=== PATIENT | male | born 1945 | race Caucasian/White ===

== ENCOUNTER 2019-02-11 10:20 | Emergency (ER) | payer MEDICARE, BC ==
[2019-02-11] MEDS ORDERED: Sodium Chloride 0.9% 10 ML Syringe FLUSH PRN (10:59)
--- NOTE | 2019-02-11 11:53 | EDM.PDOC ---
ED HPI GENERAL MEDICAL PROBLEM - General Chief Complaint: General Stated Complaint: WEAK/SOB Time Seen by Provider: 02/11/19 10:54 Source of Information: Reports: Patient, RN Notes Reviewed - History of Present Illness INITIAL COMMENTS - FREE TEXT/NARRATIVE: 73-year-old male comes in with severe dyspnea. States he's been short of breath for about 2 weeks. He has had no chest pain, only very occasional cough, no recent fever or chills. He states he does have chronic anemia. He typically goes to the [facility] for his medical treatment. He is not aware of any personal history for hypertension, diabetes. He states he has been told that he has a "leaky aortic valve" no abdominal pain vomiting or diarrhea. He is not on blood thinner medication. He states he has been taken [id number] iron supplement. He does not smoke. Upon further questioning he admits that he has had swelling of his right leg worse over the past several days. He does have an area of chronic eczema right lower leg. 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 Denies: Wheezing, Pleuritic Chest Pain Cardiovascular: Denies: Chest Pain (Occasional) Endocrine: Reports: Fatigue GI/Abdominal: Denies: Abdominal Pain, Nausea, Vomiting Musculoskeletal: Reports: Other (There has been swelling of his right lower leg for the past several days). Denies: Leg Pain, Joint Pain Skin: Reports: Rash (Area of chronic rash and eczema right lower leg) Neurological: Denies: Numbness, Tingling ED EXAM, GENERAL - Physical Exam Exam: See Below General Appearance: Alert, Moderate Distress (Moderate tachypnea) Eye Exam: Bilateral Eye: PERRL Throat/Mouth: Normal Inspection, Normal Oropharynx Head: Atraumatic. No: Facial Swelling Neck: Supple, Full Range of Motion Respiratory/Chest: Respiratory Distress. No: Rales, Rhonchi, Wheezing ( Moderate tachypnea) Cardiovascular: Regular Rate, Rhythm GI/Abdominal: Soft, Non-Tender Extremities: Pedal Edema (Moderate swelling right lower leg with area of eczema , erythema right lower anterior leg), Increased Warmth (Slightly increased warmth right anterior leg). No: Leg Pain (Legs are nontender), Pallor Neurological: Alert, Oriented, No Motor/Sensory Deficits Skin Exam: Warm, Dry EKG INTERPRETATION EKG Date: 02/11/19 Rhythm: NSR P-Wave: Present QRS: LBBB Course - Vital Signs Last Recorded V/S: Last Vital Signs Temp 97.6 F 02/11/19 10:24 Pulse 70 02/11/19 10:24 Resp 18 02/11/19 10:24 BP 154/65 H 02/11/19 10:24 Pulse Ox 100 02/11/19 10:24 - Orders/Labs/Meds Orders: Active Orders 24 hr Category Date Time Status EKG 12 Lead [EKG Documentation Completion] [RC] STAT Care 02/11/19 10:59 Active Peripheral IV Care [RC] . DIRECTED Care 02/11/19 11:00 Active Sodium Chloride 0.9% [Saline Flush] Med 02/11/19 10:59 Active 10 ml FLUSH ASDIRECTED PRN Peripheral IV Insertion Adult [OM.PC] Stat Oth 02/11/19 11:00 Ordered Medication Orders Sodium Chloride (Saline Flush) 10 ml FLUSH ASDIRECTED PRN PRN Reason: Keep Vein Open Last Admin: 02/11/19 11:09 Dose: 10 ml Labs: Laboratory Tests 02/11/19 02/11/19 02/11/19 Range/Units 10:40 10:40 10:40 WBC 11.15 H (4.23-9.07) K/mm3 RBC 2.70 L (4.63-6.08) M/mm3 Hgb 8.8 L (13.7-17.5) gm/L Hct 27.4 L (40.1-51.0) % MCV 101.5 H (79.0-92.2) fl MCH 32.6 H (25.7-32.2) pg MCHC 32.1 L (32.2-35.5) g/dl RDW Std Deviation 56.6 H (35.1-43.9) fL Plt Count 133 L (163-337) K/mm3 MPV 11.2 (9.4-12.3) fl Neut % (Auto) 38.8 (34.0-67.9) % Lymph % (Auto) 19.2 L (21.8-53.1) % [place] % (Auto) 41.6 H (5.3-12.2) % Eos % (Auto) 0 L (0.8-7.0) Baso % (Auto) 0.1 (0.1-1.2) % Neut # (Auto) 4.33 (1.78-5.38) K/mm3 Lymph # (Auto) 2.14 (1.32-3.57) K/mm3 [place] # (Auto) 4.64 H (0.30-0.82) K/mm3 Eos # (Auto) 0.00 L (0.04-0.54) K/mm3 Baso # (Auto) 0.01 (0.01-0.08) K/mm3 Manual Slide Review Abnormal smear D-Dimer, Quantitative 0.91 H (0.19-0.50) mg/L Sodium 133 L (136-145) mEq/L Potassium 3.8 (3.5-5.1) mEq/L Chloride 99 (98-107) mEq/L Carbon Dioxide 21 (21-32) mEq/L Anion Gap 16.8 H (5-15) BUN 24 H (7-18) mg/dL Creatinine 2.1 H (0.7-1.3) mg/dL Est Cr Clr Drug Dosing 32.83 mL/min Estimated GFR (MDRD) 31 (>60) mL/min BUN/Creatinine Ratio 11.4 L (14-18) Glucose 130 H (83-115) mg/dL Calcium 8.9 (8.5-10.1) mg/dL Total Bilirubin 0.8 (0.2-1.0) mg/dL AST 28 (15-37) U/L ALT 32 (16-63) U/L Alkaline Phosphatase 103 (46-116) U/L Troponin I 0.208 H* (0.00-0.056) ng/mL Total Protein 7.4 (6.4-8.2) g/dl Albumin 3.9 (3.4-5.0) g/dl Globulin 3.5 gm/dL Albumin/Globulin Ratio 1.1 (1-2) 02/11/19 Range/Units 13:05 WBC (4.23-9.07) K/mm3 RBC (4.63-6.08) M/mm3 Hgb (13.7-17.5) gm/L Hct (40.1-51.0) % MCV (79.0-92.2) fl MCH (25.7-32.2) pg MCHC (32.2-35.5) g/dl RDW Std Deviation (35.1-43.9) fL Plt Count (163-337) K/mm3 MPV (9.4-12.3) fl Neut % (Auto) (34.0-67.9) % Lymph % (Auto) (21.8-53.1) % [place] % (Auto) (5.3-12.2) % Eos % (Auto) (0.8-7.0) Baso % (Auto) (0.1-1.2) % Neut # (Auto) (1.78-5.38) K/mm3 Lymph # (Auto) (1.32-3.57) K/mm3 [place] # (Auto) (0.30-0.82) K/mm3 Eos # (Auto) (0.04-0.54) K/mm3 Baso # (Auto) (0.01-0.08) K/mm3 Manual Slide Review D-Dimer, Quantitative (0.19-0.50) mg/L Sodium (136-145) mEq/L Potassium (3.5-5.1) mEq/L Chloride (98-107) mEq/L Carbon Dioxide (21-32) mEq/L Anion Gap (5-15) BUN (7-18) mg/dL Creatinine (0.7-1.3) mg/dL Est Cr Clr Drug Dosing mL/min Estimated GFR (MDRD) (>60) mL/min BUN/Creatinine Ratio (14-18) Glucose (83-115) mg/dL Calcium (8.5-10.1) mg/dL Total Bilirubin (0.2-1.0) mg/dL AST (15-37) U/L ALT (16-63) U/L Alkaline Phosphatase (46-116) U/L Troponin I 0.206 H* (0.00-0.056) ng/mL Total Protein (6.4-8.2) g/dl Albumin (3.4-5.0) g/dl Globulin gm/dL Albumin/Globulin Ratio (1-2) Meds: Medications Generic Name Dose Route Start Last Admin Trade Name Freq PRN Reason Stop Dose Admin Sodium Chloride 10 ml 02/11/19 10:59 02/11/19 11:09 Saline Flush FLUSH 10 ml ASDIRECTED PRN Administration Keep Vein Open Discontinued Medications Generic Name Dose Route Start Last Admin Trade Name Freq PRN Reason Stop Dose Admin Aspirin 324 mg 02/11/19 14:05 02/11/19 14:12 Aspirin PO 02/11/19 14:06 324 mg ONETIME ONE Administration - Re-Assessments/Exams Free Text/Narrative Re-Assessment/Exam: 02/11/19 13:00. Initial troponin was elevated at 0.208. Chest x-ray is clear white blood count 11,150, hemoglobin 8.8. 14:00 We did do ultrasound of his right lower leg check for DVT and that did come back negative. We did do a repeat troponin and that came back at 0.206. I did discuss admission at our hospital with Dr. Wilson, Hospitalist carbon sequestration plant operator. He has requested I do transfer him to a [facility] due to multiple complex underlying problems. Especially with consideration for cardiology and nephrology that we do not have here in [place]. Patient is requesting transfer to [facility]. Dr. Uribe, Hospitalist accepting physician. We will transfer by ground ambulance. Departure - Departure Time of Disposition: 15:09 Disposition: DC/Tfer to Acute Hospital 02 Condition: Serious Clinical Impression: Elevated troponin, Renal insufficiency Dyspnea Qualifiers: Dyspnea type: unspecified Qualified Code(s): R06.00 - Dyspnea, unspecified Anemia Qualifiers: Anemia type: unspecified type Qualified Code(s): D64.9 - Anemia, unspecified - Discharge Information Referrals: PCP,None [Primary Care Provider] - Forms: ED Department Discharge - My Orders Last 24 Hours: My Active Orders 02/11/19 10:59 EKG 12 Lead [EKG Documentation Completion] [RC] STAT Sodium Chloride 0.9% [Saline Flush] 10 ml FLUSH ASDIRECTED PRN 02/11/19 11:00 Peripheral IV Care [RC] . DIRECTED Peripheral IV Insertion Adult [OM.PC] Stat - Assessment/Plan Last 24 Hours: My Active Orders 02/11/19 10:59 EKG 12 Lead [EKG Documentation Completion] [RC] STAT Sodium Chloride 0.9% [Saline Flush] 10 ml FLUSH ASDIRECTED PRN 02/11/19 11:00 Peripheral IV Care [RC] . DIRECTED Peripheral IV Insertion Adult [OM.PC] Stat
--- NOTE | 2019-02-11 13:43 | CR ---
Chest: Portable view of the chest was obtained. Comparison: No previous chest x-ray. Heart size is within normal limits for portable technique. Tortuous thoracic aorta is seen. Lungs are clear with no acute parenchymal change. Bony structures are grossly intact. Impression: 1. Nothing acute is appreciated on portable chest x-ray. Diagnostic code #1
[2019-02-11] MEDS ORDERED: Aspirin 81 MG Tab.Chew PO ONE (14:05)
--- NOTE | 2019-02-11 14:48 | US ---
Right lower extremity deep venous ultrasound: Duplex and color flow imaging was obtained of the right common femoral, proximal greater saphenous, superficial femoral, popliteal, posterior tibial and peroneal veins. Left common femoral vein was also evaluated. Findings: Normal phasic flow, augmentation and compression is seen. Lymph node is noted within the right groin having a normal ultrasound appearance. Impression: 1. No evidence of deep venous thrombosis within the right lower extremity or left common femoral vein. Diagnostic code #1
[2019-02-11] MEDS ORDERED: Sodium Chloride 0.9% 1,000 ML IV SCH (15:15)
== END 2019-02-11 16:13 ==
LOC: JD.ED 10:20
DX: R06.00 Dyspnea, unspecified (principal); N28.9 Disorder of kidney and ureter, unspecified; D50.9 Iron deficiency anemia, unspecified; E78.00 Pure hypercholesterolemia, unspecified; I10 Essential (primary) hypertension; R79.89 Other specified abnormal findings of blood chemistry; Z79.899 Other long term (current) drug therapy
CPT/HCPCS: 36415; 71045; 80053; 84484; 85025; 85379; 93005; 93971; 96360; 99285; A9270; J7040

== ENCOUNTER 2019-05-10 11:23 | Emergency (ER) | payer MEDICARE, BC ==
[2019-05-10] MEDS ORDERED: Sodium Chloride 0.9% 10 ML Syringe FLUSH PRN (13:11)
--- NOTE | 2019-05-10 14:08 | CR ---
Chest: Portable view of the chest was obtained. Comparison: Prior chest x-ray of 02/11/19. Heart size is normal. Tortuous thoracic aorta is seen. Lungs are clear with no acute parenchymal change. Bony structures are grossly intact. Impression: 1. Nothing acute is seen. Diagnostic code #2
--- NOTE | 2019-05-10 15:55 | EDM.PDOC ---
ED HPI GENERAL MEDICAL PROBLEM - General Chief Complaint: Gastrointestinal Problem Stated Complaint: BLEEDING HERMIROIDS CAUSING WEAKNESS Time Seen by Provider: 05/10/19 13:00 Source of Information: Reports: Patient History Limitations: Reports: No Limitations - History of Present Illness INITIAL COMMENTS - FREE TEXT/NARRATIVE: 73-year-old male presents for evaluation and treatment of weakness. Patient has a history of internal hemorrhoids that bleed. He has been appreciating some blood to him a bright red in color this weekend. States that he's not had a bowel movement since Friday. Last bowel movement on Friday he estimates he lost a half a cup of bright red blood. No clots. No rectal pain. He denies any melena. He reports associated symptoms of weakness and "a little bit "of shortness of breath. No chest pain no lightheadedness or abdominal pain. He is not on any aspirin or any blood thinners. Patient was seen in March of this year for similar symptoms. He is found to have an elevated troponin and sent to [place]. He states he did not have a heart attack. He did receive 2 units of blood along [place]. He states that he had a colonoscopy and was told that he had internal hemorrhoids and polyps. He also had an EGD and had a bleeding ulcer but states that this has been managed. He also reports that he had a bone marrow biopsy and was seen by Dr. Marsh, oncologist, his bone marrow biopsy was campo. At this point is unclear exactly why he has anemia. He states that he has been anemic for 7 years. primary care provider is Howard Sin. - Related Data Allergies Allergy/AdvReac Type Severity Reaction Status Date / Time No Known Allergies Allergy Verified 02/11/19 11:08 Home Meds: Home Meds Allopurinol [Zyloprim] 200 mg PO BEDTIME 02/11/19 [History] Ferrous Sulfate 255 mg PO DAILY 02/11/19 [History] Omeprazole 40 mg PO DAILY 02/11/19 [History] atorvaSTATin [Lipitor] 20 mg PO DAILY 02/11/19 [History] Calcium Carb/Magnesium Oxid/D3 [Calcium Magnesium + D] 1 tab PO DAILY 05/10/19 [ History] Cholecalciferol (Vitamin D3) [Vitamin D3] 2,000 unit PO DAILY 05/10/19 [History] Cyanocobalamin (Vitamin B-12) [Vitamin B12] 5,000 mcg PO DAILY 05/10/19 [History ] L. Acidophilus/L. 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 Hematologic History: Reports: Anemia, Iron Deficiency - Past Surgical History Cardiovascular Surgical History: Reports: None Social & Family History - Family History Family Medical History: Noncontributory - Tobacco Use Smoking Status *Q: Never Smoker - Caffeine Use Caffeine Use: Reports: Soda - Recreational Drug Use Recreational Drug Use: No ED ROS GENERAL - Review of Systems Review Of Systems: See Below Constitutional: Reports: Weakness Respiratory: Reports: Shortness of Breath ("little bit") Cardiovascular: Denies: Chest Pain GI/Abdominal: Reports: Hematochezia, Other (denies any rectal pain). Denies: Abdominal Pain, Melena Hematologic/Lymphatic: Reports: Anemia ED EXAM, GI/ABD - Physical Exam Exam: See Below Exam Limited By: No Limitations General Appearance: Alert, WD/WN, No Apparent Distress Throat/Mouth: Normal Inspection, Normal Voice, No Airway Compromise Respiratory/Chest: No Respiratory Distress, Lungs Clear, Normal Breath Sounds Cardiovascular: Normal Peripheral Pulses, Regular Rate, Rhythm, No Murmur GI/Abdominal Exam: Normal Bowel Sounds, Soft, Non-Tender, Other (unable to get stool on rectal exam, hemocult - ) Rectal (Males) Exam: Heme - Stool (diffictuly obtaining stool) Neurological: Alert, Oriented, Normal Cognition Psychiatric: Normal Affect, Normal Mood Skin Exam: Warm, Dry, Normal Color EKG INTERPRETATION EKG Date: 05/10/19 Time: 13:30 Rhythm: NSR Rate (Beats/Min): 72 QRS: LBBB EKG Interpretation Comments: NSR at 72 bpm. LBBB. No significant change from previous EKG. Reviewed by myself and Dr. Franco. Course - Vital Signs Last Recorded V/S: Last Vital Signs Temp 98.3 F 05/10/19 11:34 Pulse 78 05/10/19 11:34 Resp 20 05/10/19 11:34 BP 126/86 05/10/19 11:34 Pulse Ox 98 05/10/19 11:34 Orthostatic Blood Pressure [ 122/71 Standing] Orthostatic Blood Pressure [ 122/76 Sitting] Orthostatic Blood Pressure [ 128/77 Supine] - Orders/Labs/Meds Labs: Laboratory Tests 05/10/19 05/10/19 05/10/19 Range/Units 12:24 12:24 12:24 WBC 7.99 (4.23-9.07) K/mm3 RBC 2.59 L (4.63-6.08) M/mm3 Hgb 8.1 L D (13.7-17.5) gm/L Hct 25.1 L (40.1-51.0) % MCV 96.9 H (79.0-92.2) fl MCH 31.3 (25.7-32.2) pg MCHC 32.3 (32.2-35.5) g/dl RDW Std Deviation 51.7 H (35.1-43.9) fL Plt Count 143 L (163-337) K/mm3 MPV 11.2 (9.4-12.3) fl Neut % (Auto) 64.4 (34.0-67.9) % Lymph % (Auto) 13.1 L (21.8-53.1) % [place] % (Auto) 21.4 H (5.3-12.2) % Eos % (Auto) 0.5 L (0.8-7.0) Baso % (Auto) 0.1 (0.1-1.2) % Neut # (Auto) 5.14 (1.78-5.38) K/mm3 Lymph # (Auto) 1.05 L (1.32-3.57) K/mm3 [place] # (Auto) 1.71 H (0.30-0.82) K/mm3 Eos # (Auto) 0.04 (0.04-0.54) K/mm3 Baso # (Auto) 0.01 (0.01-0.08) K/mm3 Manual Slide Review Abnormal smear PT 10.9 (9.5-12.1) SECONDS INR 1.00 APTT 28 (24-31) SECONDS Sodium 138 (136-145) mEq/L Potassium 4.3 (3.5-5.1) mEq/L Chloride 103 (98-107) mEq/L Carbon Dioxide 23 (21-32) mEq/L Anion Gap 16.3 H (5-15) BUN 20 H (7-18) mg/dL Creatinine 1.4 H (0.7-1.3) mg/dL Est Cr Clr Drug Dosing 49.25 mL/min Estimated GFR (MDRD) 50 (>60) mL/min BUN/Creatinine Ratio 14.3 (14-18) Glucose 100 (83-115) mg/dL Calcium 9.1 (8.5-10.1) mg/dL Total Bilirubin 0.3 (0.2-1.0) mg/dL AST 31 (15-37) U/L ALT 29 (16-63) U/L Alkaline Phosphatase 116 (46-116) U/L Troponin I (0.00-0.056) ng/mL Total Protein 6.8 (6.4-8.2) g/dl Albumin 3.5 (3.4-5.0) g/dl Globulin 3.3 gm/dL Albumin/Globulin Ratio 1.1 (1-2) Blood Type Gel Antibody Screen Antibody Identification Antigen Typing 05/10/19 05/10/19 Range/Units 12:24 12:24 WBC (4.23-9.07) K/mm3 RBC (4.63-6.08) M/mm3 Hgb (13.7-17.5) gm/L Hct (40.1-51.0) % MCV (79.0-92.2) fl MCH (25.7-32.2) pg MCHC (32.2-35.5) g/dl RDW Std Deviation (35.1-43.9) fL Plt Count (163-337) K/mm3 MPV (9.4-12.3) fl Neut % (Auto) (34.0-67.9) % Lymph % (Auto) (21.8-53.1) % [place] % (Auto) (5.3-12.2) % Eos % (Auto) (0.8-7.0) Baso % (Auto) (0.1-1.2) % Neut # (Auto) (1.78-5.38) K/mm3 Lymph # (Auto) (1.32-3.57) K/mm3 [place] # (Auto) (0.30-0.82) K/mm3 Eos # (Auto) (0.04-0.54) K/mm3 Baso # (Auto) (0.01-0.08) K/mm3 Manual Slide Review PT (9.5-12.1) SECONDS INR APTT (24-31) SECONDS Sodium (136-145) mEq/L Potassium (3.5-5.1) mEq/L Chloride (98-107) mEq/L Carbon Dioxide (21-32) mEq/L Anion Gap (5-15) BUN (7-18) mg/dL Creatinine (0.7-1.3) mg/dL Est Cr Clr Drug Dosing mL/min Estimated GFR (MDRD) (>60) mL/min BUN/Creatinine Ratio (14-18) Glucose (83-115) mg/dL Calcium (8.5-10.1) mg/dL Total Bilirubin (0.2-1.0) mg/dL AST (15-37) U/L ALT (16-63) U/L Alkaline Phosphatase (46-116) U/L Troponin I 0.137 H* (0.00-0.056) ng/mL Total Protein (6.4-8.2) g/dl Albumin (3.4-5.0) g/dl Globulin gm/dL Albumin/Globulin Ratio (1-2) Blood Type O POSITIVE Gel Antibody Screen Positive Antibody Identification Anti-E Antigen Typing E Antigen - NEGATIVE Meds: Medications Discontinued Medications Generic Name Dose Route Start Last Admin Trade Name Freq PRN Reason Stop Dose Admin Sodium Chloride 10 ml 05/10/19 13:11 05/10/19 13:43 Saline Flush FLUSH 10 ml ASDIRECTED PRN Administration Keep Vein Open - Re-Assessments/Exams Free Text/Narrative Re-Assessment/Exam: 05/10/19 15:57 I reviewed the labs with the patient. Trop leak appears to be chronic. Unclear the etiology of his anemia at this point. sounds as is he has had a complete workup in [place]. Per his report only possible etiology found thus far is bleeding internal hemorrhoids. Has had colconscopy, egd and bone marrow biopsy recently. So called with Dr. Marsh oncologist I did discuss case with Dr. gil, surgeon quality liaison. Given that this is a chronic problem and he does not have known cardiac issues did not feel that we need to transfuse him. She'll see him in clinic for follow-up. Discharge instructions as documented. Departure - Departure Time of Disposition: 15:57 Disposition: Home, Self-Care 01 Condition: Fair Clinical Impression: Elevated troponin Anemia Qualifiers: Anemia type: unspecified type Qualified Code(s): D64.9 - Anemia, unspecified - Discharge Information *PRESCRIPTION DRUG MONITORING PROGRAM REVIEWED*: No *COPY OF PRESCRIPTION DRUG MONITORING REPORT IN PATIENT [place]: No Instructions: Anemia Referrals: Howard Sin PA-C [Primary Care Provider] - Lin-Jennifer Srivastava MD [Physician] - Forms: ED Department Discharge Additional Instructions: Continue with your current medications and plan of care. Recommend avoiding any NSAIDs such as ibuprofen, Aleve etc. Recommend follow-up with Dr. Gil this week. Call [phone] to schedule an appointment with her. She is a general surgeon over at [facility]. Please return to the ER if your symptoms change or worsen.
== END 2019-05-10 16:07 | disposition home or self-care (01) ==
LOC: JD.ED 11:23
DX: D64.9 Anemia, unspecified (principal); R79.89 Other specified abnormal findings of blood chemistry; I10 Essential (primary) hypertension; E78.00 Pure hypercholesterolemia, unspecified; Z79.899 Other long term (current) drug therapy
CPT/HCPCS: 36415; 71045; 71045-26; 80053; 84484; 85025; 85610; 85730; 86850; 86870; 86900; 86901; 93005; 99285-25

== ENCOUNTER 2019-12-04 14:59 | Emergency (ER) | payer MEDICARE, BC ==
--- NOTE | 2019-12-04 15:44 | EDM.PDOC ---
ED HPI GENERAL MEDICAL PROBLEM - General Chief Complaint: Neurological Problem Stated Complaint: WEAK AND HARD TIME THINKING Time Seen by Provider: 12/04/19 15:38 Source of Information: Reports: Patient History Limitations: Reports: No Limitations - History of Present Illness INITIAL COMMENTS - FREE TEXT/NARRATIVE: 74-year-old male presents to the ED for evaluation of mild confusion and mild expressive aphasia that developed today. Patient states he has chronic rectal bleeding presumably from internal hemorrhoids and has been bleeding per rectum or without a bowel movement for the last year. He has had a colonoscopy in complete workup with no positive findings in [place]. The history strongly suggests these are hemorrhoid problems is the oblique bleeding is always bright red with wiping after cause pain stool. He states in the past he has become so anemic that he required multiple blood transfusions. He was concerned today this may provide be the reason that he is confused and slightly disoriented. He states he never felt bad enough today to not drive the vehicle. She feels slightly offkilter at times where he takes an extra step and is never fallen and he certainly not hit his head recently. Denies any fever chills or injuries. No recent nausea vomiting or diarrhea. He reports that he has been eating and drinking well and believes his nutritional intake is normal. Onset: Today, Gradual Onset Date: 12/04/19 Duration: Hour(s):, Intermittent Location: Reports: Generalized (Feels a little bit offkilter. Feels generally weak. Feels that he is having difficulty finding the right words to say at times i.e. expressive aphasia.) Quality: Reports: Other Severity: Moderate (Weakness generalized.) Improves with: Reports: None Worsens with: Reports: None Context: Denies: Activity, Exercise, Lifting, Sick Contact, Trauma Associated Symptoms: Reports: Confusion, Malaise, Weakness (Generalized sense of weakness.). 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 Most of his medications are actually [id number] medications.) - Related Data Allergies Allergy/AdvReac Type Severity Reaction Status Date / Time No Known Allergies Allergy Verified 12/04/19 15:19 Home Meds: Home Meds Ferrous Sulfate 255 mg PO DAILY 02/11/19 [History] Omeprazole 40 mg PO DAILY 02/11/19 [History] allopurinoL [Zyloprim] 200 mg PO BEDTIME 02/11/19 [History] atorvaSTATin [Lipitor] 20 mg PO DAILY 02/11/19 [History] Calcium Carb/Magnesium Oxid/D3 [Calcium Magnesium + D] 1 tab PO DAILY 05/10/19 [ History] Cholecalciferol (Vitamin D3) [Vitamin D3] 2,000 unit PO DAILY 05/10/19 [History] Cyanocobalamin (Vitamin B-12) [Vitamin B12] 5,000 mcg PO DAILY 05/10/19 [History ] L. Acidophilus/L. Rhamnosus [Probiotic 15 Billion Cell Cap] 1 tab PO DAILY 05/10 [History] Multivitamin [Multivitamins] 1 each PO DAILY 05/10/19 [History] Naproxen Sodium [Aleve] 220 mg PO DAILY PRN 05/10/19 [History] [place]-3/DHA/Epa/Fish Oil [[place] 3 500 Softgel] 1 tab PO DAILY 05/10/19 [History] Vitamin E 400 unit PO DAILY 05/10/19 [History] Past Medical History Cardiovascular History: Reports: High Cholesterol, Hypertension, Other (See Below) 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 is had a colonoscopy by fire captain in [place] over a year ago with no positive findings in the colon. It sounds like however there was a enlarged internal hemorrhoid at the time but this fire captain states that he doesn't repair these or band them. The patient thus has had continued bleeding per rectum with every bowel movement for the last year his hemoglobin at that time was down to 7 and he required multiple transfusions Hematologic History: Reports: Anemia, Iron Deficiency - Past Surgical History Cardiovascular Surgical History: Reports: None Social & Family History - Family History Family Medical History: Noncontributory - Tobacco Use Smoking Status *Q: Never Smoker - Caffeine Use Caffeine Use: Reports: Soda - Living Situation & Occupation Living situation: Reports: Single (Self-employed) Occupation: Employed ED ROS GENERAL - Review of Systems Review Of Systems: See Below Constitutional: Reports: Malaise, Weakness, Fatigue. Denies: Fever, Chills, Night Sweats, Diaphoresis, Decreased Appetite, Weight Loss HEENT: Reports: No Symptoms Respiratory: Reports: No Symptoms Cardiovascular: Reports: Blood Pressure Problem, Lightheadedness. Denies: Chest Pain, Claudication, Dyspnea on Exertion, Edema, Orthopnea, Palpitations Endocrine: Reports: Fatigue GI/Abdominal: Reports: Constipation, Hematochezia (running constipation medication almost with every bowel movement for the last year. Has been bad enough that he became anemic enough to require colonoscopy with no positive findings. 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 Denies: Headache, Numbness, Paresthesia, Pre-Existing Deficit, Seizure, Syncope, Tingling, Tremors (She feels he is listing a little bit to the left at times. No falls and doesn't have to hang onto any furniture to walk.), Trouble Speaking Psychiatric: Reports: Confusion. Denies: Anxiety, Cravings, Depression, Hallucinations, Homicidal Ideation, Mood Lability, Suicidal Ideation Hematologic/Lymphatic: Reports: Anemia Immunologic: Reports: No Symptoms ED EXAM, NEURO - Physical Exam Exam: See Below Exam Limited By: No Limitations General Appearance: Alert, WD/WN, Anxious, Mild Distress, Other (Vital signs show temperature 37.1. Pulse is 72 and sinus heart rate is 18 BP slightly elevated 158/92 with O2 sats of 98%.) Eye Exam: Bilateral Eye: Normal Inspection, PERRL, Other (No nystagmus) Throat/Mouth: Other Head Exam: Atraumatic, Normocephalic (Tongue is mildly dry and coated.) Neck: Normal Inspection, Supple, Non-Tender, Full Range of Motion. No: Lymphadenopathy (L), Lymphadenopathy (R) Respiratory/Chest: No Respiratory Distress, Lungs Clear, Normal Breath Sounds, No Accessory Muscle Use, Chest Non-Tender Cardiovascular: Normal Peripheral Pulses, Regular Rate, Rhythm, No Edema, No Gallop, No Murmur, No Rub GI/Abdominal: Normal Bowel Sounds, Soft, Non-Tender, No Organomegaly, No Abnormal Bruit, No Mass, Pelvis Stable, Other (Male) Exam: No Hernia (No surgical scars.) Neurological: Alert, Normal Mood/Affect, Normal Dorsiflexion, CN II-XII Intact, Normal Plantar Flexion, Normal Gait (No ataxia.), Normal Reflexes, No Motor/ Sensory Deficits, Oriented x 3. No: Abnormal Motor, Abnormal Pin Prick, Babinski, Difficulty Walking Back Exam: Normal Inspection, Full Range of Motion. No: CVA Tenderness (L), CVA Tenderness (R) Extremities: Normal Inspection, Normal Range of Motion, Non-Tender Psychiatric: Normal Affect, Normal Mood Skin Exam: Warm, Dry, Intact, Normal Color, No Rash EKG INTERPRETATION EKG Date: 12/04/19 Time: 16:02 Rhythm: NSR Rate (Beats/Min): 72 [place]: LAD-Left [place] Deviation P-Wave: Enlarged (Consider left atrial hypertrophy) QRS: LBBB ST-T: Other (There is T-wave inversion in leads 1 aVL and lead V6.) QT: Prolonged EKG Interpretation Comments: Abnormal ECG Course - Vital Signs Last Recorded V/S: Last Vital Signs Temp 37.1 C 12/04/19 15:20 Pulse 72 12/04/19 15:20 Resp 18 12/04/19 15:20 BP 158/92 H 12/04/19 15:20 Pulse Ox 98 12/04/19 15:20 - Orders/Labs/Meds Orders: Active Orders 24 hr Category Date Time Status Bladder Scan [RC] ASDIRECTED Care 12/04/19 15:41 Active EKG Documentation Completion [RC] STAT Care 12/04/19 15:40 Active Chest 1V Frontal [CR] Stat Exams 12/04/19 15:39 Taken FOLIC ACID [CHEM] Stat Lab 12/04/19 16:00 Received VITAMIN B12 [CHEM] Stat Lab 12/04/19 16:00 Received Dextrose 5%-0.9% NaCl [Dextrose 5%-Normal Saline] 1,000 Med 12/04/19 15:45 Active ml IV ASDIRECTED Medication Orders Dextrose/Sodium Chloride (Dextrose 5%-Normal Saline) 1,000 mls @ 500 mls/hr IV ASDIRECTED MALI Last Infusion: 12/04/19 17:33 Dose: 999 mls/hr Admin: 12/04/19 16:03 Dose: 500 mls/hr Labs: Laboratory Tests 12/04/19 12/04/19 12/04/19 Range/Units 16:00 16:00 16:00 WBC 4.47 (4.23-9.07) K/mm3 RBC 3.28 L (4.63-6.08) M/mm3 Hgb 10.3 L D (13.7-17.5) gm/dl Hct 31.6 L (40.1-51.0) % MCV 96.3 H (79.0-92.2) fl MCH 31.4 (25.7-32.2) pg MCHC 32.6 (32.2-35.5) g/dl RDW Std Deviation 47.2 H (35.1-43.9) fL Plt Count 148 L (163-337) K/mm3 MPV 11.6 (9.4-12.3) fl Neut % (Auto) 60.4 (34.0-67.9) % Lymph % (Auto) 17.2 L (21.8-53.1) % [place] % (Auto) 20.8 H (5.3-12.2) % Eos % (Auto) 0.7 L (0.8-7.0) Baso % (Auto) 0.2 (0.1-1.2) % Neut # (Auto) 2.70 (1.78-5.38) K/mm3 Lymph # (Auto) 0.77 L (1.32-3.57) K/mm3 [place] # (Auto) 0.93 H (0.30-0.82) K/mm3 Eos # (Auto) 0.03 L (0.04-0.54) K/mm3 Baso # (Auto) 0.01 (0.01-0.08) K/mm3 Manual Slide Review Abnormal smear ESR 22 H (0-15) mm/hr PT 11.1 (9.7-12.0) SECONDS INR 1.02 Sodium (136-145) mEq/L Potassium (3.5-5.1) mEq/L Chloride (98-107) mEq/L Carbon Dioxide (21-32) mEq/L Anion Gap (5-15) BUN (7-18) mg/dL Creatinine (0.7-1.3) mg/dL Est Cr Clr Drug Dosing mL/min Estimated GFR (MDRD) (>60) mL/min BUN/Creatinine Ratio (14-18) Glucose (83-115) mg/dL Hemoglobin A1c (4.50-6.20) % Uric Acid (3.5-7.2) mg/dL Calcium (8.5-10.1) mg/dL Magnesium (1.8-2.4) mg/dl Total Bilirubin (0.2-1.0) mg/dL AST (15-37) U/L ALT (16-63) U/L Alkaline Phosphatase (46-116) U/L Creatine Kinase (39-308) U/L Troponin I (0.00-0.056) ng/mL C-Reactive Protein (<1.0) mg/dL NT-Pro-B Natriuret Pep (0-125) pg/mL Total Protein (6.4-8.2) g/dl Albumin (3.4-5.0) g/dl Globulin gm/dL Albumin/Globulin Ratio (1-2) TSH 3rd Generation (0.358-3.74) uIU/mL Urine Color (Yellow) Urine Appearance (Clear) Urine pH (5.0-8.0) Ur Specific [place] (1.005-1.030) Urine Protein (Negative) Urine Glucose (UA) (Negative) Urine Ketones (Negative) Urine Occult Blood (Negative) Urine Nitrite (Negative) Urine Bilirubin (Negative) Urine Urobilinogen (0.2-1.0) Ur Leukocyte Esterase (Negative) Urine RBC (0-5) /hpf Urine WBC (0-5) /hpf Ur Squamous Epith Cells (0-5) /hpf Urine Bacteria (FEW) /hpf Urine Mucus (FEW) /hpf 12/04/19 12/04/19 12/04/19 Range/Units 16:00 16:00 16:00 WBC (4.23-9.07) K/mm3 RBC (4.63-6.08) M/mm3 Hgb (13.7-17.5) gm/dl Hct (40.1-51.0) % MCV (79.0-92.2) fl MCH (25.7-32.2) pg MCHC (32.2-35.5) g/dl RDW Std Deviation (35.1-43.9) fL Plt Count (163-337) K/mm3 MPV (9.4-12.3) fl Neut % (Auto) (34.0-67.9) % Lymph % (Auto) (21.8-53.1) % [place] % (Auto) (5.3-12.2) % Eos % (Auto) (0.8-7.0) Baso % (Auto) (0.1-1.2) % Neut # (Auto) (1.78-5.38) K/mm3 Lymph # (Auto) (1.32-3.57) K/mm3 [place] # (Auto) (0.30-0.82) K/mm3 Eos # (Auto) (0.04-0.54) K/mm3 Baso # (Auto) (0.01-0.08) K/mm3 Manual Slide Review ESR (0-15) mm/hr PT (9.7-12.0) SECONDS INR Sodium 140 (136-145) mEq/L Potassium 3.8 (3.5-5.1) mEq/L Chloride 103 (98-107) mEq/L Carbon Dioxide 22 (21-32) mEq/L Anion Gap 18.8 H (5-15) BUN 20 H (7-18) mg/dL Creatinine 1.5 H (0.7-1.3) mg/dL Est Cr Clr Drug Dosing 45.29 mL/min Estimated GFR (MDRD) 46 (>60) mL/min BUN/Creatinine Ratio 13.3 L (14-18) Glucose 106 (83-115) mg/dL Hemoglobin A1c 4.90 (4.50-6.20) % Uric Acid 5.3 (3.5-7.2) mg/dL Calcium 9.6 (8.5-10.1) mg/dL Magnesium 2.0 (1.8-2.4) mg/dl Total Bilirubin 0.7 (0.2-1.0) mg/dL AST 13 L (15-37) U/L ALT 23 (16-63) U/L Alkaline Phosphatase 94 (46-116) U/L Creatine Kinase 145 (39-308) U/L Troponin I 0.065 H* (0.00-0.056) ng/mL C-Reactive Protein < 0.2 (<1.0) mg/dL NT-Pro-B Natriuret Pep (0-125) pg/mL Total Protein 7.6 (6.4-8.2) g/dl Albumin 4.4 (3.4-5.0) g/dl Globulin 3.2 gm/dL Albumin/Globulin Ratio 1.4 (1-2) TSH 3rd Generation 1.716 (0.358-3.74) uIU/mL Urine Color (Yellow) Urine Appearance (Clear) Urine pH (5.0-8.0) Ur Specific [place] (1.005-1.030) Urine Protein (Negative) Urine Glucose (UA) (Negative) Urine Ketones (Negative) Urine Occult Blood (Negative) Urine Nitrite (Negative) Urine Bilirubin (Negative) Urine Urobilinogen (0.2-1.0) Ur Leukocyte Esterase (Negative) Urine RBC (0-5) /hpf Urine WBC (0-5) /hpf Ur Squamous Epith Cells (0-5) /hpf Urine Bacteria (FEW) /hpf Urine Mucus (FEW) /hpf 12/04/19 12/04/19 Range/Units 16:00 17:00 WBC (4.23-9.07) K/mm3 RBC (4.63-6.08) M/mm3 Hgb (13.7-17.5) gm/dl Hct (40.1-51.0) % MCV (79.0-92.2) fl MCH (25.7-32.2) pg MCHC (32.2-35.5) g/dl RDW Std Deviation (35.1-43.9) fL Plt Count (163-337) K/mm3 MPV (9.4-12.3) fl Neut % (Auto) (34.0-67.9) % Lymph % (Auto) (21.8-53.1) % [place] % (Auto) (5.3-12.2) % Eos % (Auto) (0.8-7.0) Baso % (Auto) (0.1-1.2) % Neut # (Auto) (1.78-5.38) K/mm3 Lymph # (Auto) (1.32-3.57) K/mm3 [place] # (Auto) (0.30-0.82) K/mm3 Eos # (Auto) (0.04-0.54) K/mm3 Baso # (Auto) (0.01-0.08) K/mm3 Manual Slide Review ESR (0-15) mm/hr PT (9.7-12.0) SECONDS INR Sodium (136-145) mEq/L Potassium (3.5-5.1) mEq/L Chloride (98-107) mEq/L Carbon Dioxide (21-32) mEq/L Anion Gap (5-15) BUN (7-18) mg/dL Creatinine (0.7-1.3) mg/dL Est Cr Clr Drug Dosing mL/min Estimated GFR (MDRD) (>60) mL/min BUN/Creatinine Ratio (14-18) Glucose (83-115) mg/dL Hemoglobin A1c (4.50-6.20) % Uric Acid (3.5-7.2) mg/dL Calcium (8.5-10.1) mg/dL Magnesium (1.8-2.4) mg/dl Total Bilirubin (0.2-1.0) mg/dL AST (15-37) U/L ALT (16-63) U/L Alkaline Phosphatase (46-116) U/L Creatine Kinase (39-308) U/L Troponin I (0.00-0.056) ng/mL C-Reactive Protein (<1.0) mg/dL NT-Pro-B Natriuret Pep 143 H (0-125) pg/mL Total Protein (6.4-8.2) g/dl Albumin (3.4-5.0) g/dl Globulin gm/dL Albumin/Globulin Ratio (1-2) TSH 3rd Generation (0.358-3.74) uIU/mL Urine Color Yellow (Yellow) Urine Appearance Clear (Clear) Urine pH 7.0 (5.0-8.0) Ur Specific [place] > or = 1.030 (1.005-1.030) Urine Protein Negative (Negative) Urine Glucose (UA) Negative (Negative) Urine Ketones Negative (Negative) Urine Occult Blood Negative (Negative) Urine Nitrite Negative (Negative) Urine Bilirubin Negative (Negative) Urine Urobilinogen 0.2 (0.2-1.0) Ur Leukocyte Esterase Negative (Negative) Urine RBC Not seen (0-5) /hpf Urine WBC 5-10 H (0-5) /hpf Ur Squamous Epith Cells 0-5 (0-5) /hpf Urine Bacteria Rare (FEW) /hpf Urine Mucus Few (FEW) /hpf Meds: Medications Generic Name Dose Route Start Last Admin Trade Name Yo PRN Reason Stop Dose Admin Dextrose/Sodium Chloride 1,000 mls @ 500 mls/hr 12/04/19 15:45 12/04/19 17:33 Dextrose 5%-Normal Saline IV 999 mls/hr ASDIRECTED MALI Infusion - Radiology Interpretation Free Text/Narrative:: 74-year-old male attends the ED with concerns about not being able to find the right words to say I mild expressive aphasia today and a sense of confusion and generalized weakness. He states he feels safe enough to drive the car. He really doesn't have any true vertigo symptoms. States he feels a little bit offkilter at times but has no difficulty walking or need for assistance. No recent falls or head injuries. Is concerned that he bleeds every time he has a bowel movement and then he might be low on blood. Is normal and his vital signs are normal as well. There is no peripheral pallor. Exam is otherwise normal as well. May have a metabolic abnormality such as hyponatremia or hypomagnesemia etc. I will CT is head. Routine labs to be done ECG and a chest x-ray as well. Is not known to be diabetic. - Re-Assessments/Exams Free Text/Narrative Re-Assessment/Exam: 12/04/19 16:30 CT head is completely normal. Ventricles along with the basal cisterns and sulci over the convexities appear to be within normal limits for the patient's age. No abnormal parenchymal densities are appreciated. No evidence of intracranial hemorrhage or mass effect is identified. Visualized mastoid sinuses and paranasal sinuses show nothing acute. Chest x-ray reveals mild tortuous thoracic aorta. Slightly widened mediastinum. Visualized lung real are clear. Discussed the normal findings of the chest x-ray and CT of the head with the patient. Reassured so far no abnormalities of been detected. 12/04/19 16:54 Hematology is back. White count is 4.47 with an auto differential of 60% neutrophils. Hemoglobin is low at 10.3 with a hematocrit of 31.6. MCV is actually elevated at 96.3. Platelet count is 148,000. PT is 11.1 with an INR 1.02 12/04/19 17:20 Chemistry reveals sodium of 140 potassium 3.8. Chloride is 103 with a bicarbonate of 22. Anion gap is elevated at 18.8. BUN is 20 with a creatinine of 1.5. Is 106 hemoglobin A1c is 4.90. Uric acid is 5.3. Calcium is 9.6 magnesium is 2.0 liver function is normal creatinine kinase is 145 troponin I is 0.065. Reactive protein is less than 0.2 total protein is 7.6 with an albumin fraction of 4.4 TSH is normal at 1.7. Urinalysis is essentially negative for any signs of infection. 12/04/19 17:31 Discussed the findings with with the patient. His hemoglobin is in fact low at 10.3 but shows more of a mild macrocytosis inset of a microcytosis. He indicates that his stools for the most part are constipated any bleeds almost every time he has a bowel movement indicating this is coming from an anal fissure or internal hemorrhoids. Follow-up with Dr. Sam Gutierrez surgeon at the hospital in the surgical clinic for a anoscopy and possible banding of internal hemorrhoids. I did not scope the patient in the ED today. Has been seen by gastroenterology before for full colonoscopy with no positive findings. He did identify that the patient had a hemorrhoid but indicated that he did not band hemorrhoids. The patient therefore more or less hanging in he's been bleeding per rectum with almost every bowel movement for the last year. I believe his metabolic acidosis with an anion gap of 18.8 is likely the cause of his feeling weak and slightly confused today. There is no evidence of any neurological deficit. I'm going to put the patient on MiraLAX powder 17 g once daily to keep his stools soft. I have ordered his folic acid and B12 levels to make sure that we are not missing another cause for his anemia. 12/04/19 18:03 Sedimentation rate returned at 22. BNP is normal at 143. B12 levels and serum folic acid levels are pending. Departure - Departure Time of Disposition: 17:34 Disposition: Home, Self-Care 01 Condition: Fair Clinical Impression: Weakness generalized, Metabolic acidosis with increased anion gap and accumulation of organic acids, Constipation by delayed colonic transit, Rectal bleeding - Discharge Information *PRESCRIPTION DRUG MONITORING PROGRAM REVIEWED*: Not Applicable *COPY OF PRESCRIPTION DRUG MONITORING REPORT IN PATIENT [place]: Not Applicable Instructions: Rectal Bleeding, Constipation, Adult, [id number], Metabolic Acidosis Referrals: Howard Sin PA-C [Primary Care Provider] - Forms: ED Department Discharge Additional Instructions: Dilation emergency him today in regards to generalized sense of weakness and mild confusion with trying to find the right words to say which we call expressive aphasia. Neuro exam is otherwise completely normal. CT of her head was performed as part of the test done through the ED today and it was found to be completely normal. Tests revealed that you are short on fluids i.e. mild to moderately dehydrated with an anion gap of 18.8 which is due to your body breaking down fats for energy inset of carbohydrates because of added diet the last few days. There were also found to be mildly short of fluids. You're treated in the ED with a liter of IV fluids well which will help to start to correct the metabolic acidosis but you need to go and eat a meal which has carbohydrates in it or sugars. You also need to drink about 32 ounces of Gatorade or Powerade tonight for rehydration and similarly again tomorrow to make sure that rehydration is completed. They should help you feel better in terms of improved weakness and improved cognitive function or thinking abilities. In regards to the persistent rectal bleeding and chronic constipation I would suggest buying some MiraLAX powder which comes and a cookie jar container. You need to take 17 g or 1 scoop a powder mixed with a kind of juice or water daily to keep the stool soft. Please range a follow-up appoint with Dr. Sam Gutierrez surgeon at the clinic here in the hospital. I wish you to see him in regards to persistent rectal bleeding and likely internal hemorrhoids causing chronic blood loss. Please call his office on Friday at [phone] to arrange an appointment. I will also send his notes to the clinic. Care Plan Goals: Copy of this chart to Dr Sam Gutierrez please. Sepsis Event Note - Evaluation Sepsis Screening Result: No Definite Risk - Focused Exam Vital Signs: Vital Signs Temp Pulse Resp BP Pulse Ox 12/04/19 15:20 37.1 C 72 18 158/92 H 98 Date Exam was Performed: 12/04/19 Time Exam was Performed: 18:01 - My Orders Last 24 Hours: My Active Orders 12/04/19 15:39 Chest 1V Frontal [CR] Stat 12/04/19 15:40 EKG Documentation Completion [RC] STAT 12/04/19 15:41 Bladder Scan [RC] ASDIRECTED 12/04/19 15:45 Dextrose 5%-0.9% NaCl [Dextrose 5%-Normal Saline] 1,000 ml IV ASDIRECTED 12/04/19 16:00 FOLIC ACID [CHEM] Stat VITAMIN B12 [CHEM] Stat - Assessment/Plan Last 24 Hours: My Active Orders 12/04/19 15:39 Chest 1V Frontal [CR] Stat 12/04/19 15:40 EKG Documentation Completion [RC] STAT 12/04/19 15:41 Bladder Scan [RC] ASDIRECTED 12/04/19 15:45 Dextrose 5%-0.9% NaCl [Dextrose 5%-Normal Saline] 1,000 ml IV ASDIRECTED 12/04/19 16:00 FOLIC ACID [CHEM] Stat VITAMIN B12 [CHEM] Stat
[2019-12-04] MEDS ORDERED: Dextrose 5%-0.9% NaCl 1,000 ML IV SCH (15:45)
--- NOTE | 2019-12-04 16:13 | CT ---
Head CT Technique: Multiple axial sections through the brain were obtained. Intravenous contrast was not utilized. Comparison: No prior intracranial imaging is available. Findings: Ventricles along with basal cisterns and sulci over the convexities appear within normal limits for the patient's age. No abnormal parenchymal densities are seen. No evidence of intracranial hemorrhage. No midline shift or mass effect is seen. Visualized mastoid sinuses and visualized paranasal sinuses show nothing acute. No acute calvarial abnormality is appreciated. Impression: 1. Nothing acute is appreciated on noncontrast head CT exam. Diagnostic code #1 This report was dictated in [place] Standard Time
[2019-12-04 16:45] LABS: HEMOGLOBIN A1C 4.9 % (4.50-6.20)
--- NOTE | 2019-12-05 17:48 | CR ---
Chest: Portable view of the chest was obtained. Comparison: Prior chest x-ray of 05/10/19. Heart size at the upper limits of normal. Tortuous thoracic aorta is seen. Lungs are clear with no acute parenchymal change. Bony structures are grossly intact. Impression: 1. Nothing acute is seen on portable chest x-ray. Diagnostic code #1 This report was dictated in [place] Standard Time
== END 2019-12-04 17:50 | disposition home or self-care (01) ==
LOC: JD.ED 14:59
DX: R53.1 Weakness (principal); K62.5 Hemorrhage of anus and rectum; K59.01 Slow transit constipation; E87.2 Acidosis; I10 Essential (primary) hypertension; E78.00 Pure hypercholesterolemia, unspecified; Z79.899 Other long term (current) drug therapy; R06.02 Shortness of breath
CPT/HCPCS: 36415; 51798; 70450; 71045; 80053; 81001; 82550; 82607; 82746; 83036; 83735; 83880; 84443; 84484; 84550; 85025; 85610; 85652; 86140; 93005; 96360; 96361; 99285; J7042; 93010; 99284

== ENCOUNTER 2019-12-06 12:39 | Emergency (ER) | payer MEDICARE, BC ==
[2019-12-06] MEDS ORDERED: Sodium Chloride 0.9% 10 ML Syringe FLUSH PRN (13:20)
--- NOTE | 2019-12-06 14:57 | EDM.PDOC ---
ED HPI GENERAL MEDICAL PROBLEM - General Chief Complaint: General Stated Complaint: WEAK,CONFUSION Time Seen by Provider: 12/06/19 13:19 Source of Information: Reports: Patient, Family History Limitations: Reports: No Limitations - History of Present Illness INITIAL COMMENTS - FREE TEXT/NARRATIVE: The patient presents with generalized weakness, rectal bleeding and short term memory loss. The patient was seen here 2 days ago for the same and was scheduled to see Dr Gutierrez today but they had to cancel and reschedule for Friday. He has had trouble before with rectal bleeding and he had scope done last year. There was an internal hemorrhoid that was not banded. He also has short term memory loss. He knows who he is, the date and where he is but he does not know his medicine and what he did that past few days. That is new for him. He has no fever, chills, cough, congestion, runny nose, chest pain, abdominal pain, nausea or vomiting. Onset: Gradual Duration: Day(s): (3) Severity: Moderate Improves with: Reports: None Worsens with: Reports: None Associated Symptoms: Reports: Confusion. Denies: Chest Pain, Cough, Fever/ Chills, Headaches, Nausea/Vomiting, Shortness of Breath - Related Data Allergies Allergy/AdvReac Type Severity Reaction Status Date / Time No Known Allergies Allergy Verified 12/06/19 12:56 Home Meds: Home Meds Ferrous Sulfate 255 mg PO DAILY 02/11/19 [History] Omeprazole 40 mg PO DAILY 02/11/19 [History] allopurinoL [Zyloprim] 200 mg PO BEDTIME 02/11/19 [History] atorvaSTATin [Lipitor] 20 mg PO DAILY 02/11/19 [History] Calcium Carb/Magnesium Oxid/D3 [Calcium Magnesium + D] 1 tab PO DAILY 05/10/19 [ History] Cholecalciferol (Vitamin D3) [Vitamin D3] 2,000 unit PO DAILY 05/10/19 [History] Cyanocobalamin (Vitamin B-12) [Vitamin B12] 5,000 mcg PO DAILY 05/10/19 [History ] L. Acidophilus/L. 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 is had a colonoscopy by scarfer operator in [place] over a year ago with no positive findings in the colon. It sounds like however there was a enlarged internal hemorrhoid at the time but this scarfer operator states that he doesn't repair these or band them. The patient thus has had continued bleeding per rectum with every bowel movement for the last year his hemoglobin at that time was down to 7 and he required multiple transfusions Hematologic History: Reports: Anemia, Iron Deficiency - Past Surgical History Cardiovascular Surgical History: Reports: None Social & Family History - Family History Family Medical History: Noncontributory - Tobacco Use Smoking Status *Q: Never Smoker - Caffeine Use Caffeine Use: Reports: Soda - Living Situation & Occupation Living situation: Reports: Single (Self-employed) Occupation: Employed ED ROS GENERAL - Review of Systems Review Of Systems: See Below Constitutional: Reports: No Symptoms HEENT: Reports: No Symptoms Respiratory: Reports: No Symptoms Cardiovascular: Reports: No Symptoms Endocrine: Reports: No Symptoms GI/Abdominal: Reports: Bloody Stool. Denies: Abdominal Pain, Nausea, Vomiting : Reports: No Symptoms Musculoskeletal: Reports: No Symptoms ED EXAM, GENERAL - Physical Exam Exam: See Below Exam Limited By: No Limitations General Appearance: Alert, No Apparent Distress Ears: Normal External Exam Nose: Normal Inspection Head: Atraumatic, Normocephalic Neck: Normal Inspection Respiratory/Chest: No Respiratory Distress, Lungs Clear, Normal Breath Sounds Cardiovascular: Regular Rate, Rhythm, No Edema, No Murmur GI/Abdominal: Soft, Non-Tender, No Organomegaly, No Mass Rectal (Males) Exam: Heme - Stool, Other (external hemorhoids) Back Exam: Normal Inspection Extremities: Normal Inspection EKG INTERPRETATION EKG Date: 12/06/19 Time: 13:23 Rhythm: NSR Rate (Beats/Min): 59 [place]: Normal P-Wave: Present QRS: LBBB ST-T: Normal QT: Normal Course - Vital Signs Last Recorded V/S: Last Vital Signs Temp 98.2 F 12/06/19 12:50 Pulse 57 L 12/06/19 12:50 Resp 22 H 12/06/19 12:50 BP 154/81 H 12/06/19 12:50 Pulse Ox 100 12/06/19 12:50 Orthostatic Blood Pressure [ 163/80 Standing] Orthostatic Blood Pressure [ 154/79 Sitting] Orthostatic Blood Pressure [ 148/74 Supine] - Orders/Labs/Meds Orders: Active Orders 24 hr Category Date Time Status Cardiac Monitoring [RC] . DIRECTED Care 12/06/19 13:20 Active EKG Documentation Completion [RC] STAT Care 12/06/19 13:20 Active Peripheral IV Care [RC] . DIRECTED Care 12/06/19 13:20 Active Sodium Chloride 0.9% [Saline Flush] Med 12/06/19 13:20 Active 10 ml FLUSH ASDIRECTED PRN Peripheral IV Insertion Adult [OM.PC] Stat Oth 12/06/19 13:20 Ordered Medication Orders Sodium Chloride (Saline Flush) 10 ml FLUSH ASDIRECTED PRN PRN Reason: Keep Vein Open Last Admin: 12/06/19 13:38 Dose: 10 ml Labs: Laboratory Tests 12/06/19 12/06/19 Range/Units 13:30 13:30 WBC 3.41 L (4.23-9.07) K/mm3 RBC 3.02 L (4.63-6.08) M/mm3 Hgb 9.7 L (13.7-17.5) gm/dl Hct 29.8 L (40.1-51.0) % MCV 98.7 H (79.0-92.2) fl MCH 32.1 (25.7-32.2) pg MCHC 32.6 (32.2-35.5) g/dl RDW Std Deviation 48.3 H (35.1-43.9) fL Plt Count 133 L (163-337) K/mm3 MPV 11.6 (9.4-12.3) fl Neut % (Auto) 54.2 (34.0-67.9) % Lymph % (Auto) 23.5 (21.8-53.1) % [place] % (Auto) 20.2 H (5.3-12.2) % Eos % (Auto) 0.9 (0.8-7.0) Baso % (Auto) 0.3 (0.1-1.2) % Neut # (Auto) 1.85 (1.78-5.38) K/mm3 Lymph # (Auto) 0.80 L (1.32-3.57) K/mm3 [place] # (Auto) 0.69 (0.30-0.82) K/mm3 Eos # (Auto) 0.03 L (0.04-0.54) K/mm3 Baso # (Auto) 0.01 (0.01-0.08) K/mm3 Manual Slide Review Abnormal smear Sodium 141 (136-145) mEq/L Potassium 3.4 L (3.5-5.1) mEq/L Chloride 105 (98-107) mEq/L Carbon Dioxide 21 (21-32) mEq/L Anion Gap 18.4 H (5-15) BUN 13 (7-18) mg/dL Creatinine 1.4 H (0.7-1.3) mg/dL Est Cr Clr Drug Dosing 48.52 mL/min Estimated GFR (MDRD) 50 (>60) mL/min BUN/Creatinine Ratio 9.3 L (14-18) Glucose 127 H (83-115) mg/dL Calcium 8.6 (8.5-10.1) mg/dL Total Bilirubin 0.4 (0.2-1.0) mg/dL AST 16 (15-37) U/L ALT 23 (16-63) U/L Alkaline Phosphatase 84 (46-116) U/L Troponin I 0.064 H* (0.00-0.056) ng/mL Total Protein 7.1 (6.4-8.2) g/dl Albumin 4.0 (3.4-5.0) g/dl Globulin 3.1 gm/dL Albumin/Globulin Ratio 1.3 (1-2) Meds: Medications Generic Name Dose Route Start Last Admin Trade Name Freq PRN Reason Stop Dose Admin Sodium Chloride 10 ml 12/06/19 13:20 12/06/19 13:38 Saline Flush FLUSH 10 ml ASDIRECTED PRN Administration Keep Vein Open - Re-Assessments/Exams Free Text/Narrative Re-Assessment/Exam: 12/06/19 18:54 I ordered an IV saline lock, EKG and labs. His EKG shows a LBBB. 12/06/19 18:55 His WBC was a little low at 3.42. His Hgb was low at 9.7. His K was a little low at 3.4. His anion gap is elevated at 16.4. His creatinine was elevated at 1.4. His glucose is 127. His troponin was elevated at 0.64. That is improved from 2 days ago at 0.65. I think he may need an MRI but I could not get him in. I will discharge him home and have him follow up. Departure - Departure Time of Disposition: 17:55 Disposition: Home, Self-Care 01 Condition: Good Clinical Impression: Confusion GI bleed Qualifiers: GI bleed type/associated pathology: unspecified gastrointestinal hemorrhage type Qualified Code(s): K92.2 - Gastrointestinal hemorrhage, unspecified Anemia Qualifiers: Anemia type: unspecified type Qualified Code(s): D64.9 - Anemia, unspecified - Discharge Information *PRESCRIPTION DRUG MONITORING PROGRAM REVIEWED*: Not Applicable *COPY OF PRESCRIPTION DRUG MONITORING REPORT IN PATIENT [place]: Not Applicable Instructions: Confusion, Gastrointestinal Bleeding Referrals: PCP,None [Primary Care Provider] - Forms: ED Department Discharge Additional Instructions: Stop taking your B12. Please return tomorrow in the morning. Sepsis Event Note - Evaluation Sepsis Screening Result: No Definite Risk - Focused Exam Vital Signs: Vital Signs Temp Pulse Resp BP Pulse Ox 12/06/19 12:50 98.2 F 57 L 22 H 154/81 H 100 Date Exam was Performed: 12/06/19 Time Exam was Performed: 18:48 - My Orders Last 24 Hours: My Active Orders 12/06/19 13:20 Cardiac Monitoring [RC] . DIRECTED EKG Documentation Completion [RC] STAT Peripheral IV Care [RC] . DIRECTED Sodium Chloride 0.9% [Saline Flush] 10 ml FLUSH ASDIRECTED PRN Peripheral IV Insertion Adult [OM.PC] Stat - Assessment/Plan Last 24 Hours: My Active Orders 12/06/19 13:20 Cardiac Monitoring [RC] . DIRECTED EKG Documentation Completion [RC] STAT Peripheral IV Care [RC] . DIRECTED Sodium Chloride 0.9% [Saline Flush] 10 ml FLUSH ASDIRECTED PRN Peripheral IV Insertion Adult [OM.PC] Stat
== END 2019-12-06 18:11 | disposition home or self-care (01) ==
LOC: JD.ED 12:39
DX: K92.2 Gastrointestinal hemorrhage, unspecified (principal); R41.0 Disorientation, unspecified; D64.9 Anemia, unspecified; I10 Essential (primary) hypertension; Z79.899 Other long term (current) drug therapy
CPT/HCPCS: 36415; 80053; 84484; 85025; 93005; 93010; 99283; 99285-25

== ENCOUNTER 2019-12-07 08:39 | Emergency (ER) | payer MEDICARE, BC ==
[2019-12-07] MEDS ORDERED: Sodium Chloride 0.9% 10 ML Syringe FLUSH PRN (08:43)
--- NOTE | 2019-12-07 09:16 | EDM.PDOC ---
ED HPI GENERAL MEDICAL PROBLEM - General Chief Complaint: Neurological Problem Stated Complaint: RECHECK - CONFUSED Time Seen by Provider: 12/07/19 08:42 Source of Information: Reports: Patient, Family History Limitations: Reports: Altered Mental Status - History of Present Illness INITIAL COMMENTS - FREE TEXT/NARRATIVE: The patient returns for some confusion and generalized weakness. The patient has been here 3 times in the past 3 days for confusion and rectal bleeding. He has a history of internal hemorrhoids and he was scoped back in January when he was sent to [place]. They did not band them. He says he has been having bleeding ever since but the past couple weeks have been worse. He then became confused on Friday where he has no short term memory. He knows who he is and where he is and he can remember the day of the week and year but as far as medications and what he did that past couple of days he cannot remember. He had a CT scan done then and that looked good. His Hgb was 10.3. He was scheduled to see Dr Gutierrez our general surgeon on Friday. He called in and told them he was still having bloody stools and confusion and they told him to come to the ED. I saw him then and his Hgb did go down to 9.7. He did not have good short term memory. I was going to have him follow up with his doctor and Dr Gutierrez. He returns today for the same issues. The other day his vitamin B12 was elevated and it was thought that may be causing some of his confusion. Onset: Gradual Duration: Day(s): Severity: Moderate Improves with: Reports: None Worsens with: Reports: None Associated Symptoms: Reports: Confusion. Denies: Chest Pain, Cough, Fever/ Chills, Headaches, Nausea/Vomiting, Shortness of Breath - Related Data Allergies Allergy/AdvReac Type Severity Reaction Status Date / Time No Known Allergies Allergy Verified 12/07/19 08:50 Home Meds: Home Meds Ferrous Sulfate 255 mg PO DAILY 02/11/19 [History] Omeprazole 40 mg PO DAILY 02/11/19 [History] allopurinoL [Zyloprim] 200 mg PO BEDTIME 02/11/19 [History] atorvaSTATin [Lipitor] 20 mg PO DAILY 02/11/19 [History] Calcium Carb/Magnesium Oxid/D3 [Calcium Magnesium + D] 1 tab PO DAILY 05/10/19 [ History] Cholecalciferol (Vitamin D3) [Vitamin D3] 2,000 unit PO DAILY 05/10/19 [History] Cyanocobalamin (Vitamin B-12) [Vitamin B12] 5,000 mcg PO DAILY 05/10/19 [History ] L. Acidophilus/L. 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 is had a colonoscopy by head orthopedic team physician in [place] over a year ago with no positive findings in the colon. It sounds like however there was a enlarged internal hemorrhoid at the time but this head orthopedic team physician states that he doesn't repair these or band them. The patient thus has had continued bleeding per rectum with every bowel movement for the last year his hemoglobin at that time was down to 7 and he required multiple transfusions Hematologic History: Reports: Anemia, Iron Deficiency - Past Surgical History Cardiovascular Surgical History: Reports: None Social & Family History - Family History Family Medical History: Noncontributory - Caffeine Use Caffeine Use: Reports: Soda - Living Situation & Occupation Living situation: Reports: Single (Self-employed) Occupation: Employed ED ROS GENERAL - Review of Systems Review Of Systems: See Below Constitutional: Reports: No Symptoms HEENT: Reports: No Symptoms Respiratory: Reports: No Symptoms Cardiovascular: Reports: No Symptoms Endocrine: Reports: No Symptoms GI/Abdominal: Reports: No Symptoms : Reports: No Symptoms Musculoskeletal: Reports: No Symptoms Skin: Reports: No Symptoms Neurological: Reports: Confusion, Weakness (Generalized). Denies: Headache, Numbness ED EXAM, NEURO - Physical Exam Exam: See Below Exam Limited By: No Limitations General Appearance: Alert, No Apparent Distress Ears: Normal External Exam Nose: Normal Inspection Head Exam: Atraumatic, Normocephalic Neck: Normal Inspection, Supple, Non-Tender Respiratory/Chest: No Respiratory Distress, Lungs Clear, Normal Breath Sounds Cardiovascular: Regular Rate, Rhythm, No Edema, No Murmur GI/Abdominal: Soft, Non-Tender, No Organomegaly, No Mass Neurological: Alert, No Motor/Sensory Deficits, Oriented x 3 Course - Vital Signs Last Recorded V/S: Last Vital Signs Temp 97.2 F 12/07/19 08:48 Pulse 64 12/07/19 08:48 Resp 16 12/07/19 08:48 BP 138/116 H 12/07/19 08:48 Pulse Ox 100 12/07/19 08:48 - Orders/Labs/Meds Orders: Active Orders 24 hr Category Date Time Status Cardiac Monitoring [RC] . DIRECTED Care 12/07/19 08:43 Active Holter Monitor 48 Hours [RC] .PRN Care 12/07/19 11:28 Ordered Peripheral IV Care [RC] . DIRECTED Care 12/07/19 08:43 Active Sodium Chloride 0.9% [Saline Flush] Med 12/07/19 08:43 Active 10 ml FLUSH ASDIRECTED PRN Peripheral IV Insertion Adult [OM.PC] Stat Oth 12/07/19 08:43 Ordered Medication Orders Sodium Chloride (Saline Flush) 10 ml FLUSH ASDIRECTED PRN PRN Reason: Keep Vein Open Last Admin: 12/07/19 09:49 Dose: 10 ml Labs: Laboratory Tests 12/07/19 12/07/19 12/07/19 Range/Units 09:10 09:10 09:10 WBC 4.28 (4.23-9.07) K/mm3 RBC 3.23 L (4.63-6.08) M/mm3 Hgb 10.3 L (13.7-17.5) gm/dl Hct 31.9 L (40.1-51.0) % MCV 98.8 H (79.0-92.2) fl MCH 31.9 (25.7-32.2) pg MCHC 32.3 (32.2-35.5) g/dl RDW Std Deviation 49.5 H (35.1-43.9) fL Plt Count 148 L (163-337) K/mm3 MPV 10.9 (9.4-12.3) fl Neut % (Auto) 62.2 (34.0-67.9) % Lymph % (Auto) 18.5 L (21.8-53.1) % [place] % (Auto) 17.5 H (5.3-12.2) % Eos % (Auto) 0.9 (0.8-7.0) Baso % (Auto) 0.2 (0.1-1.2) % Neut # (Auto) 2.66 (1.78-5.38) K/mm3 Lymph # (Auto) 0.79 L (1.32-3.57) K/mm3 [place] # (Auto) 0.75 (0.30-0.82) K/mm3 Eos # (Auto) 0.04 (0.04-0.54) K/mm3 Baso # (Auto) 0.01 (0.01-0.08) K/mm3 Manual Slide Review Abnormal smear Sodium 138 (136-145) mEq/L Potassium 3.4 L (3.5-5.1) mEq/L Chloride 104 (98-107) mEq/L Carbon Dioxide 23 (21-32) mEq/L Anion Gap 14.4 (5-15) BUN 14 (7-18) mg/dL Creatinine 1.5 H (0.7-1.3) mg/dL Est Cr Clr Drug Dosing 45.29 mL/min Estimated GFR (MDRD) 46 (>60) mL/min BUN/Creatinine Ratio 9.3 L (14-18) Glucose 102 (83-115) mg/dL Calcium 9.0 (8.5-10.1) mg/dL Total Bilirubin 0.3 (0.2-1.0) mg/dL AST 15 (15-37) U/L ALT 24 (16-63) U/L Alkaline Phosphatase 92 (46-116) U/L Troponin I 0.076 H* (0.00-0.056) ng/mL Total Protein 7.8 (6.4-8.2) g/dl Albumin 4.3 (3.4-5.0) g/dl Globulin 3.5 gm/dL Albumin/Globulin Ratio 1.2 (1-2) Vitamin B12 1525 H (193-986) pg/ml Meds: Medications Generic Name Dose Route Start Last Admin Trade Name Freq PRN Reason Stop Dose Admin Sodium Chloride 10 ml 12/07/19 08:43 12/07/19 09:49 Saline Flush FLUSH 10 ml ASDIRECTED PRN Administration Keep Vein Open - Re-Assessments/Exams Free Text/Narrative Re-Assessment/Exam: 12/07/19 09:18 I ordered an IV saline lock, labs and I was able to get him in to MRI this morning. 12/07/19 11:30 His Hgb is better today at 10.3. His K is a little low at 3.4. His creatinine is elevated at 1.5. His troponin is still elevated at 0.076. His vitamin B12 is still elevated. His MRI shows multiple small diffusion abnormalities within the white matter of the left occipital lobe, medial left temporal lobe and within the cortical surface of the left occipital lobe compatible with fairly recent infarcts. Additional infarct is noted within the left thalamus. Mild senescent change as noted above. I called Dr Huff the neurologist at [facility] and he recommended an ECHO, carotid dopplers and speech therapy. He did recommend admission but the patient does not want to stay. I called Howard Sin his provider and he will follow up with him. Departure - Departure Time of Disposition: 11:40 Disposition: Home, Self-Care 01 Condition: Good Clinical Impression: Elevated troponin, Renal insufficiency CVA (cerebral vascular accident) Qualifiers: CVA mechanism: unspecified Qualified Code(s): I63.9 - Cerebral infarction, unspecified Anemia Qualifiers: Anemia type: unspecified type Qualified Code(s): D64.9 - Anemia, unspecified GI bleed Qualifiers: GI bleed type/associated pathology: unspecified gastrointestinal hemorrhage type Qualified Code(s): K92.2 - Gastrointestinal hemorrhage, unspecified - Discharge Information *PRESCRIPTION DRUG MONITORING PROGRAM REVIEWED*: Not Applicable *COPY OF PRESCRIPTION DRUG MONITORING REPORT IN PATIENT [place]: Not Applicable Referrals: PCP,None [Primary Care Provider] - Sam Gutierrez MD [Physician] - 1 Day Howard Sin PA-C [Physician Grocery Clerk] - 1 Week Forms: ED Department Discharge Additional Instructions: I have ordered some outpatient studies for you. Our radiology department will call you with those appointment times. Take your medication as prescribed. Please return if you are worse. Sepsis Event Note - Evaluation Sepsis Screening Result: No Definite Risk - Focused Exam Vital Signs: Vital Signs Temp Pulse Resp BP Pulse Ox 12/07/19 08:48 97.2 F 64 16 138/116 H 100 Date Exam was Performed: 12/07/19 Time Exam was Performed: 11:36 - My Orders Last 24 Hours: My Active Orders 12/07/19 08:43 Cardiac Monitoring [RC] . DIRECTED Peripheral IV Care [RC] . DIRECTED Sodium Chloride 0.9% [Saline Flush] 10 ml FLUSH ASDIRECTED PRN Peripheral IV Insertion Adult [OM.PC] Stat 12/07/19 11:28 Holter Monitor 48 Hours [RC] .PRN - Assessment/Plan Last 24 Hours: My Active Orders 12/07/19 08:43 Cardiac Monitoring [RC] . DIRECTED Peripheral IV Care [RC] . DIRECTED Sodium Chloride 0.9% [Saline Flush] 10 ml FLUSH ASDIRECTED PRN Peripheral IV Insertion Adult [OM.PC] Stat 12/07/19 11:28 Holter Monitor 48 Hours [RC] .PRN
--- NOTE | 2019-12-07 10:42 | MR ---
MRI brain Technique: T1 sagittal; T2, T2 FLAIR, gradient echo, T1 and diffusion axial; T1 coronal and gradient echo coronal images were obtained of the brain. Comparison: Previous head CT study of 12/04/19. Findings: Mild areas of increased signal scattered within the subcortical and periventricular white matter which is felt compatible with small vessel ischemic demyelination change. Small area of increased signal is noted within the left occipital lobe. There are acute diffusion abnormalities being seen within the medial left temporal region and within the white matter within the left occipital lobe as well as within the cortex of the left occipital lobe compatible with fairly recent infarcts. There is also abnormal diffusion within the thalamus compatible with additional small infarct on the left side. No evidence of definite intracranial hemorrhage. Ventricles along with basal cisterns and sulci over the convexities are within normal limits for the patient's age. Normal signal void is seen within the major cerebral arteries within the skull base. Impression: 1. Multiple small diffusion abnormalities within the white matter of the left occipital lobe, medial left temporal lobe and within the cortical surface of the left occipital lobe compatible with fairly recent infarcts. Additional infarct is noted within the left thalamus. 2. Mild senescent change as noted above. Diagnostic code #3 This report was dictated in [place] Standard Time
== END 2019-12-07 12:05 | disposition home or self-care (01) ==
LOC: JD.ED 08:39
DX: I63.9 Cerebral infarction, unspecified (principal); K92.2 Gastrointestinal hemorrhage, unspecified; D64.9 Anemia, unspecified; R79.89 Other specified abnormal findings of blood chemistry; N28.9 Disorder of kidney and ureter, unspecified; I10 Essential (primary) hypertension; E78.00 Pure hypercholesterolemia, unspecified; Z79.899 Other long term (current) drug therapy
CPT/HCPCS: 36415; 70551; 70551-26; 80053; 82607; 84484; 85025; 93225; 93226; 99285-25

== ENCOUNTER 2020-11-01 09:06 | Emergency (ER) | payer MEDICARE, BC ==
--- NOTE | 2020-11-01 09:51 | EDM.PDOC ---
ED HPI GENERAL MEDICAL PROBLEM - General Chief Complaint: Flank Pain Stated Complaint: RT SIDE FLANK PAIN Time Seen by Provider: 11/01/20 09:17 Source of Information: Reports: Patient History Limitations: Reports: No Limitations - History of Present Illness INITIAL COMMENTS - FREE TEXT/NARRATIVE: The patient presents with right sided chest pain. The patient was up on a ladder and he fell and landed on his right side. He did not hit his head or hurt his neck. He has right sided lateral chest pain since. This happened 5 days ago. He has more pain with deep breathing. He has no fever, chills, cough, congestion or runny nose. He has no abdominal pain, nausea or vomiting. He has no hip or arm pain. Onset: Sudden Duration: Day(s): (5) Location: Reports: Chest Quality: Reports: Sharp Severity: Moderate Improves with: Reports: Immobilization Worsens with: Reports: Breathing, Movement Context: Reports: Trauma (Fell off of a ladder) Associated Symptoms: Reports: Chest Pain, Shortness of Breath. Denies: Cough, Fever/Chills, Headaches, Nausea/Vomiting Right Flank Pain Score (Numeric/FACES): 3 - Related Data Allergies Allergy/AdvReac Type Severity Reaction Status Date / Time No Known Allergies Allergy Verified 11/01/20 09:23 Home Meds: Home Meds Omeprazole 40 mg PO DAILY 02/11/19 [History] allopurinoL [Zyloprim] 200 mg PO BEDTIME 02/11/19 [History] atorvaSTATin [Lipitor] 20 mg PO DAILY 02/11/19 [History] Cholecalciferol (Vitamin D3) [Vitamin D3] 2,000 unit PO DAILY 05/10/19 [History] Cyanocobalamin (Vitamin B-12) [Vitamin B12] 5,000 mcg PO DAILY 05/10/19 [History] L. Acidophilus/L. 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 is had a colonoscopy by dielectric testing machine operator in [place] over a year ago with no positive findings in the colon. It sounds like however there was a enlarged internal hemorrhoid at the time but this dielectric testing machine operator states that he doesn't repair these or band them. The patient thus has had continued bleeding per rectum with every bowel movement for the last year his hemoglobin at that time was down to 7 and he required multiple transfusions Hematologic History: Reports: Anemia, Iron Deficiency - Past Surgical History Cardiovascular Surgical History: Reports: None Social & Family History - Family History Family Medical History: No Pertinent Family History - Tobacco Use Tobacco Use Status *Q: Never Tobacco User - Caffeine Use Caffeine Use: Reports: Soda - Recreational Drug Use Recreational Drug Use: No - Living Situation & Occupation Living situation: Reports: Single (Self-employed) Occupation: Employed ED ROS GENERAL - Review of Systems Review Of Systems: See Below Constitutional: Reports: No Symptoms HEENT: Reports: No Symptoms Respiratory: Reports: Shortness of Breath. Denies: Cough Cardiovascular: Reports: Chest Pain Endocrine: Reports: No Symptoms GI/Abdominal: Reports: No Symptoms : Reports: No Symptoms ED EXAM, GI/ABD - Physical Exam Exam: See Below Exam Limited By: No Limitations General Appearance: Alert, No Apparent Distress Ears: Normal External Exam Nose: Normal Inspection Head: Atraumatic, Normocephalic Neck: Normal Inspection, Supple, Non-Tender Respiratory/Chest: No Respiratory Distress, Lungs Clear, Normal Breath Sounds Cardiovascular: Regular Rate, Rhythm, No Edema, No Murmur, Other (Pain upon palpation to the right lateral lower chest) GI/Abdominal Exam: Normal Bowel Sounds, Soft, Non-Tender, No Organomegaly Back Exam: Normal Inspection Extremities: Normal Inspection Course - Vital Signs Last Recorded V/S: Last Vital Signs Temp 96.5 F L 11/01/20 09:16 Pulse 78 11/01/20 09:32 Resp 18 12/09/20 09:16 BP 146/85 H 12/09/20 09:32 Pulse Ox 97 11/01/20 09:32 - Orders/Labs/Meds Orders: Active Orders 24 hr Category Date Time Status Incentive Spirometry [RT Incentive Spirometry] [RC] Care 11/01/20 10:47 Active ASDIRECTED - Re-Assessments/Exams Free Text/Narrative Re-Assessment/Exam: 11/01/20 09:51 I have ordered a CT of his chest. 11/01/20 10:[address] of his chest shows nothing acute is appreciated. 11/01/20 10:51 I will order an incentive spirometer and something for pain. Departure - Departure Time of Disposition: 10:55 Disposition: Home, Self-Care 01 Condition: Good Clinical Impression: Fall Qualifiers: Encounter type: initial encounter Qualified Code(s): W19.XXXA - Unspecified fall, initial encounter Chest wall injury Qualifiers: Encounter type: initial encounter Qualified Code(s): S29.9XXA - Unspecified injury of thorax, initial encounter - Discharge Information *PRESCRIPTION DRUG MONITORING PROGRAM REVIEWED*: No *COPY OF PRESCRIPTION DRUG MONITORING REPORT IN PATIENT [place]: No Prescriptions: Hydrocodone/Acetaminophen [Hydrocodone-Acetamin 5-325 mg] 1 - 2 each PO Q6HR PRN #20 tablet PRN Reason: Pain Referrals: PCP,None [Primary Care Provider] - Forms: ED Department Discharge Additional Instructions: Use the incentive spirometer 10 breath every other hour while awake for 5 days. Take tylenol or motrin as needed for pain. If that does not help, try the hydrocodone. Follow up with your provider within a week. Please return if you are worse. Sepsis Event Note (ED) - Evaluation Sepsis Screening Result: No Definite Risk - Focused Exam Vital Signs: Vital Signs Temp Pulse Resp BP Pulse Ox 11/01/20 09:32 78 146/85 H 97 11/01/20 09:16 96.5 F L 18 172/86 H 98 - My Orders Last 24 Hours: My Active Orders 11/01/20 10:47 Incentive Spirometry [RT Incentive Spirometry] [RC] ASDIRECTED - Assessment/Plan Last 24 Hours: My Active Orders 11/01/20 10:47 Incentive Spirometry [RT Incentive Spirometry] [RC] ASDIRECTED
--- NOTE | 2020-11-01 10:34 | CT ---
CT chest Technique: Multiple axial sections through the chest were obtained. Intravenous contrast was not utilized. Comparison: No prior chest CT is available, prior chest x-ray of 05/10/19 is available. Findings: Heart and mediastinum: Mild atherosclerotic calcification is seen within the thoracic aorta without aneurysm. Fairly prominent coronary artery calcification is seen. Heart is slightly enlarged. No mediastinal adenopathy is seen. Lungs: Slight increased density within the lingula is seen most likely representing scarring. Very minimal dependent atelectasis is noted. No acute parenchymal densities are seen. No pneumothorax is appreciated. Osseous: Several compression deformities are seen within the spine which are most likely old. No definite acute fracture is appreciated within the spine or within the ribs. Upper abdominal structures: Nothing acute is appreciated. Moderate sized hiatal hernia is noted. Impression: 1. Findings as noted above. 2. Nothing acute is appreciated. Diagnostic code #2
== END 2020-11-01 11:20 | disposition home or self-care (01) ==
LOC: JD.ED 09:06
DX: S29.9XXA Unspecified injury of thorax, initial encounter (principal); E78.00 Pure hypercholesterolemia, unspecified; I10 Essential (primary) hypertension; Z79.82 Long term (current) use of aspirin; Z79.899 Other long term (current) drug therapy; W11.XXXA Fall on and from ladder, initial encounter
CPT/HCPCS: 71250; 71250-26; 99283; 99283-25

== ENCOUNTER 2021-08-07 07:15 | Emergency (ER) | payer MEDICARE, BC ==
[2021-08-07] MEDS ORDERED: Lidocaine 1% with EPINEPHrine 1:100,000 20 ML MDV INJECT ONE (07:42)
--- NOTE | 2021-08-07 07:47 | EDM.PDOC ---
ED HPI GENERAL MEDICAL PROBLEM - General Chief Complaint: Skin Complaint Stated Complaint: SWOLLEN R SIDE ABDOMEN Time Seen by Provider: 08/07/21 07:42 Source of Information: Reports: Patient, Family (spouse) History Limitations: Reports: No Limitations - History of Present Illness INITIAL COMMENTS - FREE TEXT/NARRATIVE: 76-year-old male presents to the ED in the accompaniment of his . He states that he has a painful swollen area on his right upper quadrant of his abdomen anteriorly. He believes this started about a week ago and is gradually increased in size and is painful primarily upon touch. There is been no drainage from the wound. He denies fever chills nausea or vomiting. Patient has no history of diabetes. Onset: Gradual Onset Date: 07/31/21 Duration: Day(s):, Getting Worse Location: Reports: Abdomen (Right upper quadrant of the abdomen just below his costal margin) Quality: Reports: Ache, Burning Severity: Moderate Improves with: Reports: Rest Worsens with: Reports: Movement (And touching the area) Context: Reports: Other (Spontaneous occurrence). Denies: Activity, Exercise, Lifting, Sick Contact, Trauma Associated Symptoms: Reports: No Other Symptoms. 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 Acidophilus/L. Rhamnosus [Probiotic 15 Billion Cell Cap] 1 tab PO DAILY 05/10/19 [History] Multivitamin [Multivitamins] 1 each PO DAILY 05/10/19 [History] Naproxen Sodium [Aleve] 220 mg PO DAILY PRN 05/10/19 [History] Vitamin E 400 unit PO DAILY 05/10/19 [History] Ascorbate Calcium [Vitamin C] 500 mg PO DAILY 11/01/20 [History] Aspirin [Halfprin] 81 mg PO DAILY 11/01/20 [History] Hydrocodone/Acetaminophen [HYDROcodone-Acetaminophen 5-325 MG] 1 - 2 each PO Q6HR PRN #20 tablet 11/01/20 [Rx] Doxycycline [Vibra-Tabs] 100 mg PO Q12HR #16 tab 08/07/21 [Rx] Past Medical History Cardiovascular History: Reports: High Cholesterol, Hypertension, Other (See Below) 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 is had a colonoscopy by concrete technician in [place] over a year ago with no positive findings in the colon. It sounds like however there was a enlarged internal hemorrhoid at the time but this concrete technician states that he doesn't repair these or band them. The patient thus has had continued bleeding per rectum with every bowel movement for the last year his hemoglobin at that time was down to 7 and he required multiple transfusions Hematologic History: Reports: Anemia, Iron Deficiency - Past Surgical History Cardiovascular Surgical History: Reports: None Social & Family History - Family History Family Medical History: No Pertinent Family History - Caffeine Use Caffeine Use: Reports: Soda - Living Situation & Occupation Living situation: Reports: Single (Self-employed) Occupation: Employed ED ROS GENERAL - Review of Systems Review Of Systems: See Below Constitutional: Denies: Fever, Chills, Malaise, Weakness, Fatigue, Decreased Appetite, Weight Loss HEENT: Reports: Glasses Respiratory: Reports: No Symptoms Cardiovascular: Reports: No Symptoms Endocrine: Reports: No Symptoms GI/Abdominal: Reports: No Symptoms, Other (GERD) : Reports: Frequency, Other (Nocturia x1.) Musculoskeletal: Reports: Neck Pain (Occasional low back pain occasional neck pain), Back Pain Skin: Reports: No Symptoms Neurological: Denies: Confusion, Dizziness, Headache, Numbness, Paresthesia, Pre-Existing Deficit, Seizure, Syncope, Tingling, Tremors Psychiatric: Reports: No Symptoms Hematologic/Lymphatic: Reports: No Symptoms Immunologic: Reports: No Symptoms ED EXAM, SKIN/RASH Exam: See Below Exam Limited By: No Limitations General Appearance: Alert, WD/WN, No Apparent Distress, Other (Temperature is 36.1 degrees heart rate is 59 is sinus respiratory to 16 with O2 sats of 97% room air BP 150/72) Eye Exam: Bilateral Eye: Normal Inspection (No blepharal pallor or scleral icterus), PERRL Respiratory/Chest: No Respiratory Distress, Lungs Clear, Normal Breath Sounds, No Accessory Muscle Use Cardiovascular: Normal Peripheral Pulses, Regular Rate, Rhythm, No Edema, No Gallop, No Murmur, No Rub Peripheral Pulses: 2+: Carotid (L), Carotid (R), Posterior Tibial (L), Posterior Tibial (R), Dorsalis Pedis (L), Dorsalis Pedis (R) GI/Abdominal: Normal Bowel Sounds, Soft, Non-Tender, No Organomegaly, No Mass, Pelvis Stable Extremities: Normal Inspection, Normal Range of Motion, Non-Tender, No Pedal Edema Neurological: Alert, Oriented, CN II-XII Intact, Normal Cognition Psychiatric: Normal Affect, Normal Mood Skin: Warm, Dry, Intact, Other (Patient has an abscess right upper quadrant of the abdomen just below the costal margin which is approximately 2.5 cm in length and 1.5 cm in width with purulent material on the surface without any discharge. Require incision and drainage) Location, Skin: Abdomen (Right upper quadrant abdominal wall) Associated features: Warmth, Tenderness, Swelling, Inflammation Course - Vital Signs Last Recorded V/S: Last Vital Signs Temp 36.1 C 08/07/21 07:33 Pulse 59 L 08/07/21 07:33 Resp 16 08/07/21 07:33 BP 150/72 H 08/07/21 07:33 Pulse Ox 97 08/07/21 07:33 - Radiology Interpretation Free Text/Narrative:: 76-year-old male presents to the ED for evaluation of a skin abscess right upper quadrant of his abdominal wall. It has been brewing for about a week. It is currently about 2.5 cm x 1.5 cm in size red angry inflamed and tender. Plan will be to anesthetize it with 1% lidocaine with epinephrine and then incise and drain the area. It may require packing. Patient will tentatively be discharged on doxycycline 100 mg twice daily for 10 days. Departure - Departure Time of Disposition: 08:08 Disposition: Home, Self-Care 01 Condition: Fair Clinical Impression: Infected sebaceous cyst of skin, Encounter for incision and drainage procedure - Discharge Information *PRESCRIPTION DRUG MONITORING PROGRAM REVIEWED*: Not Applicable *COPY OF PRESCRIPTION DRUG MONITORING REPORT IN PATIENT [place]: Not Applicable Prescriptions: Doxycycline [Vibra-Tabs] 100 mg PO Q12HR #16 tab Instructions: Epidermoid Cyst Drainage Referrals: Howard Sin PA-C [Primary Care Provider] - Additional Instructions: Evaluation in the emergency room today in regards to an infected sebaceous cyst right upper abdominal wall. The area was anesthetized with 1% lidocaine containing epinephrine. Incision and drainage was performed with removal of good portion of the infected sebaceous cyst. Wound has been packed and the packing should stay in place for the next 48 hours. In 48 hours you can remove the dressing and the packing from the wound and then place antibiotic ointment such as bacitracin or Polysporin on the wound and cover with a bandage daily to keep it clean. You will need to take antibiotic doxycycline 1 tablet by mouth twice daily for the next 8 days to clear up infection completely. Follow-up with Howard Sin if any further problems occur. Sepsis Event Note (ED) - Focused Exam Vital Signs: Vital Signs Temp Pulse Resp BP Pulse Ox 08/07/21 07:33 36.1 C 59 L 16 150/72 H 97
[2021-08-07] MEDS ORDERED: Lidocaine 1% with EPINEPHrine 1:100,000 10 ML MDV ONE (07:48)
[2021-08-07] MEDS ORDERED: Lidocaine 1% with EPINEPHrine 1:100,000 10 ML MDV INJECT ONE (08:18)
== END 2021-08-07 08:25 | disposition home or self-care (01) ==
LOC: JD.ED 07:15
DX: L72.3 Sebaceous cyst (principal); E78.00 Pure hypercholesterolemia, unspecified; I10 Essential (primary) hypertension; Z79.899 Other long term (current) drug therapy; Z79.82 Long term (current) use of aspirin
CPT/HCPCS: 10060; 10061; 87070; 87075; 87077; 87186; 87205; 99283; 99283-25

== ENCOUNTER 2021-08-09 08:58 | Emergency (ER) | payer MEDICARE, BC ==
--- NOTE | 2021-08-09 09:20 | EDM.PDOC ---
ED HPI GENERAL MEDICAL PROBLEM - General Chief Complaint: Wound Recheck Stated Complaint: REMOVAL OF GAUZE FROM ABCESS Time Seen by Provider: 08/09/21 09:09 Source of Information: Reports: Patient History Limitations: Reports: No Limitations - History of Present Illness INITIAL COMMENTS - FREE TEXT/NARRATIVE: 76-year-old male presents to the ED for review of infected sebaceous cyst that was incised and drained by me 2 days ago August 07. He is here to have the packing removed from the wound. It proved to be an infected sebaceous cyst. He states it is a little uncomfortable with clothing rubbing over it but otherwise is improving and not near as painful. Has not noticed much drainage on his bandages. No fever no chills and tolerating antibiotics well. Onset: Gradual Onset Date: 08/05/21 (Started with slight redness and swelling right upper abdominal wall August 04.) Duration: Day(s):, Improving Location: Reports: Abdomen (Right upper abdominal wall) Quality: Reports: Ache, Burning Severity: Mild Improves with: Reports: Other (Is slowly getting better since incision and drainage was performed.) Worsens with: Reports: Other (Touch or with clothing rubbing over it.) Context: Reports: Other (Patient had an infected sebaceous cyst right upper abdominal wall that underwent incision and drainage in the ED 2 days ago by me with packing placement.) Associated Symptoms: Reports: No Other Symptoms Treatments 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 Acidophilus/L. Rhamnosus [Probiotic 15 Billion Cell Cap] 1 tab PO DAILY 05/10/19 [History] Multivitamin [Multivitamins] 1 each PO DAILY 05/10/19 [History] Naproxen Sodium [Aleve] 220 mg PO DAILY PRN 05/10/19 [History] Vitamin E 400 unit PO DAILY 05/10/19 [History] Ascorbate Calcium [Vitamin C] 500 mg PO DAILY 11/01/20 [History] Aspirin [Halfprin] 81 mg PO DAILY 11/01/20 [History] Hydrocodone/Acetaminophen [HYDROcodone-Acetaminophen 5-325 MG] 1 - 2 each PO Q6HR PRN #20 tablet 11/01/20 [Rx] Doxycycline [Vibra-Tabs] 100 mg PO Q12HR #16 tab 08/07/21 [Rx] Past Medical History Cardiovascular History: Reports: High Cholesterol, Hypertension, Other (See Below) 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 is had a colonoscopy by case management social worker in [place] over a year ago with no positive findings in the colon. It sounds like however there was a enlarged internal hemorrhoid at the time but this case management social worker states that he doesn't repair these or band them. The patient thus has had continued bleeding per rectum with every bowel movement for the last year his hemoglobin at that time was down to 7 and he required multiple transfusions Hematologic History: Reports: Anemia, Iron Deficiency - Infectious Disease History Infectious Disease History: Reports: None - Past Surgical History Cardiovascular Surgical History: Reports: None Social & Family History - Family History Family Medical History: No Pertinent Family History - Tobacco Use Tobacco Use Status *Q: Never Tobacco User Second Hand Smoke Exposure: No - Caffeine Use Caffeine Use: Reports: Coffee - Recreational Drug Use Recreational Drug Use: No - Living Situation & Occupation Living situation: Reports: Single (Self-employed) Occupation: Employed [facility] GENERAL - Review of Systems Review Of Systems: See Below Constitutional: Denies: Fever, Chills, Malaise, Weakness, Fatigue, Decreased Appetite, Weight Loss HEENT: Reports: Glasses Respiratory: Reports: No Symptoms Cardiovascular: Reports: No Symptoms Endocrine: Reports: No Symptoms GI/Abdominal: Reports: No Symptoms. Denies: Diarrhea, Nausea, Vomiting : Reports: Frequency, Other (Nocturia x1.) Musculoskeletal: Reports: Joint Pain (Occasional joint pain hips knees low back and neck at times) Skin: Reports: Other (Recent infected sebaceous cyst right upper quadrant of the abdomen) Neurological: Reports: No Symptoms ( that underwent incision and drainage 2 days ago.) Psychiatric: Reports: No Symptoms Hematologic/Lymphatic: Reports: No Symptoms Immunologic: Reports: No Symptoms ED EXAM, SKIN/RASH Exam: See Below Exam Limited By: No Limitations General Appearance: Alert, WD/WN, No Apparent Distress, Other (Temperature is 36.2. Heart rate a 67 is sinus respiratory is 20 with O2 sats of 96% room air. BP 1 4575) GI/Abdominal: Other (Inspection of the wound right upper quadrant of the abdomen shows surrounding erythema. I removed the packing from the wound after saline soak. I was able to remove more sebaceous material from the wound with toothed forceps. No further packing will be placed.) Course - Vital Signs Last Recorded V/S: Last Vital Signs Temp 36.2 C 08/09/21 09:09 Pulse 67 08/09/21 09:09 Resp 20 08/09/21 09:09 BP 145/75 H 08/09/21 09:09 Pulse Ox 96 08/09/21 09:09 - Radiology Interpretation Free Text/Narrative:: 76-year-old male presents to the ED for evaluation of an infected sebaceous cyst that underwent incision and drainage through the ED 2 days ago. The cyst was on the right upper quadrant of the abdomen just below the costal margin. Incision is approximate 1.5 cm in length. Packing was removed today with minimal purulent debris. I was able to remove further sebaceous material from the wound. I suspect this will have to be surgically excised once it heals to remove the entire sebaceous cyst to prevent it from reoccurring. I would suggest this be done probably in 3 months time. No further packing will be placed. He will continue his antibiotics doxycycline 100 mg twice daily until completion of a 10-day course. He is to follow-up if any further problems occur or redness is not markedly improved over the next 72 hours. Departure - Departure Time of Disposition: 09:25 Disposition: Home, Self-Care 01 Condition: Fair Clinical Impression: Wound check, abscess - Discharge Information *PRESCRIPTION DRUG MONITORING PROGRAM REVIEWED*: Not Applicable *COPY OF PRESCRIPTION DRUG MONITORING REPORT IN PATIENT [place]: Not Applicable Referrals: Howard Sin PA-C [Primary Care Provider] - Forms: ED Department Discharge Additional Instructions: Evaluation in the emergency room this morning in regards to surgical wound right upper quadrant of the abdomen performed 2 days ago with incision and drainage of a infected sebaceous cyst. The wound appears to be healing satisfactorily. The packing was removed from the wound and will not be repacked at this time. Further sebaceous material was removed with forceps. Wound is to be cleansed daily with soap and water. Showering is okay. Then apply topical antibiotic such as bacitracin or Polysporin to the wound once daily and cover with a wide bandage. Change the bandage daily. Wound should heal on its own over the next week. Redness surrounding the wound should look markedly improved within the next 72 hours. Continue antibiotics doxycycline 100 mg twice daily until fin ished. Follow-up if redness is not markedly improved in 72 hours time or if you develop any fever or chills. Sepsis Event Note (ED) - Evaluation Sepsis Screening Result: No Definite Risk - Focused Exam Vital Signs: Vital Signs Temp Pulse Resp BP Pulse Ox 08/09/21 09:09 36.2 C 67 20 145/75 H 96
== END 2021-08-09 09:39 | disposition home or self-care (01) ==
LOC: JD.ED 08:58
DX: Z48.817 Encounter for surgical aftercare following surgery on the skin and subcutaneous tissue (principal); E78.00 Pure hypercholesterolemia, unspecified; I10 Essential (primary) hypertension; Z79.899 Other long term (current) drug therapy; Z79.82 Long term (current) use of aspirin
CPT/HCPCS: 99282

== ENCOUNTER 2021-08-27 13:43 | Emergency (ER) | payer MEDICARE, BC ==
[2021-08-27] MEDS ORDERED: Midazolam 5 MG/ML 10 ML MDV IV ONE ×2 (13:55→15:40)
[2021-08-27] MEDS ORDERED: Succinylcholine 200 MG/10 ML MDV ONE ×2 (13:56→14:00)
[2021-08-27] MEDS ORDERED: EPINEPHrine 1:10,000 1 MG/10 ML Syringe ONE (14:00)
[2021-08-27] MEDS ORDERED: Amiodarone/Dextrose,Iso-Osmotic 360 MG/200 ML Premix Bag ONE (14:00)
[2021-08-27] MEDS ORDERED: Naloxone 0.4 MG/ML SDV ONE ×2 (14:00)
[2021-08-27] MEDS ORDERED: Midazolam 1 MG/ML 5 ML SDV ONE (14:00)
[2021-08-27] MEDS ORDERED: Amiodarone 150 MG/3 ML SDV ONE (14:00)
[2021-08-27] MEDS ORDERED: Rocuronium 50 MG/5 ML Vial ONE (14:00)
[2021-08-27] MEDS ORDERED: Amiodarone/Dextrose,Iso-Osmotic 150 MG/100 ML Premix Bag IV ONE (14:00)
[2021-08-27] MEDS ORDERED: Rocuronium 50 MG/5 ML Vial IVPUSH ONE (14:01)
[2021-08-27] MEDS ORDERED: propofoL 100 ML IV SCH (14:09)
[2021-08-27] MEDS ORDERED: Sodium Chloride 0.9% 10 ML Syringe FLUSH PRN (14:10)
--- NOTE | 2021-08-27 14:25 | EDM.PDOC ---
ED HPI GENERAL MEDICAL PROBLEM - General Chief Complaint: CPR in Progress Stated Complaint: CHEST PAIN\SOB POSS HEART ATTACK Time Seen by Provider: 08/27/21 14:10 Source of Information: Reports: RN Notes Reviewed - History of Present Illness INITIAL COMMENTS - FREE TEXT/NARRATIVE: 76 yr old male presented by private auto to ED a short time ago with C/O chest pain. Details unclear at this time but while sitting, in triage room passed out. Medical alert was called and than when realized he was not breathing code blue called. We got him on a cot, no pulse, not breathing, CPR started. Once in a trauma bay bagged ventilations with 02 started, IO ascess L tibia obtained. - Related Data Allergies Allergy/AdvReac Type Severity Reaction Status Date / Time No Known Allergies Allergy Verified 08/09/21 09:11 Home Meds: Home Meds Omeprazole 40 mg PO DAILY 02/11/19 [History] allopurinoL [Zyloprim] 200 mg PO BEDTIME 02/11/19 [History] atorvaSTATin [Lipitor] 20 mg PO DAILY 02/11/19 [History] Cholecalciferol (Vitamin D3) [Vitamin D3] 2,000 unit PO DAILY 05/10/19 [History] Cyanocobalamin (Vitamin B-12) [Vitamin B12] 5,000 mcg PO DAILY 05/10/19 [History] L. Acidophilus/L. Rhamnosus [Probiotic 15 Billion Cell Cap] 1 tab PO DAILY 05/10/19 [History] Multivitamin [Multivitamins] 1 each PO DAILY 05/10/19 [History] Naproxen Sodium [Aleve] 220 mg PO DAILY PRN 05/10/19 [History] Vitamin E 400 unit PO DAILY 05/10/19 [History] Ascorbate Calcium [Vitamin C] 500 mg PO DAILY 11/01/20 [History] Aspirin [Halfprin] 81 mg PO DAILY 11/01/20 [History] Hydrocodone/Acetaminophen [HYDROcodone-Acetaminophen 5-325 MG] 1 - 2 each PO Q6HR PRN #20 tablet 11/01/20 [Rx] Doxycycline [Vibra-Tabs] 100 mg PO Q12HR #16 tab 08/07/21 [Rx] Past Medical History Cardiovascular History: Reports: High Cholesterol, Hypertension, Other (See Below) 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 is had a colonoscopy by ham curer in [place] over a year ago with no positive findings in the colon. It sounds like however there was a enlarged internal hemorrhoid at the time but this ham curer states that he doesn't repair these or band them. The patient thus has had continued bleeding per rectum with every bowel movement for the last year his hemoglobin at that time was down to 7 and he required multiple transfusions Hematologic History: Reports: Anemia, Iron Deficiency - Infectious Disease History Infectious Disease History: Reports: None - Past Surgical History Cardiovascular Surgical History: Reports: None Social & Family History - Family History Family Medical History: No Pertinent Family History - Caffeine Use Caffeine Use: Reports: Coffee - Living Situation & Occupation Living situation: Reports: Single (Self-employed) Occupation: Employed ED ROS GENERAL - Review of Systems Review Of Systems: Unable To Obtain Reason Not Obtained: cardiac arrest, unresponsive ED EXAM, CPR - Physical Exam Exam: See Below General Appearance: Other (unresponsive, not breathing. ) Ears: Normal External Exam Throat/Mouth: Normal Inspection Head: Atraumatic Neck: Other (No JVD) Respiratory Chest: Other (not breathing) Cardiovascular: Other (no heart tones) GI/Abdominal Exam: Soft, Other (not distended) Extremities: Normal Inspection. No: Pedal Edema, Redness Neurological: Unresponsive, Other (mild pallor) Skin Exam: No: Rash #1 Interpretation EKG Date: 08/27/21 Rhythm: A-Fib Rate (Beats/Min): 121 P-Wave: Absent QRS: LBBB #2 Interpretation EKG Date: 08/27/21 Time: 14:40 Rhythm: NSR Rate (Beats/Min): 99 P-Wave: Present QRS: LBBB Course - Orders/Labs/Meds Orders: Active Orders 24 hr Category Date Time Status Peripheral IV Care [RC] . DIRECTED Care 08/27/21 14:11 Active Lactated Ringers [Ringers, Lactated] 1,000 ml Med 08/27/21 14:45 Active IV ASDIRECTED Sodium Chloride 0.9% [Saline Flush] Med 08/27/21 14:10 Active 10 ml FLUSH ASDIRECTED PRN Peripheral IV Insertion Adult [OM.PC] Stat Oth 08/27/21 14:11 Ordered Medication Orders Lactated Ringer's (Ringers, Lactated) 1,000 mls @ 100 mls/hr IV ASDIRECTED MALI Sodium Chloride (Sodium Chloride 0.9% 10 Ml Syringe) 10 ml FLUSH ASDIRECTED PRN PRN Reason: Keep Vein Open Labs: Laboratory Tests 08/27/21 08/27/21 08/27/21 Range/Units 14:00 14:00 14:00 WBC 3.39 L (4.23-9.07) K/mm3 RBC 4.73 (4.63-6.08) M/mm3 Hgb 13.8 D (13.7-17.5) gm/dl Hct 42.9 (40.1-51.0) % MCV 90.7 D (79.0-92.2) fl MCH 29.2 (25.7-32.2) pg MCHC 32.2 (32.2-35.5) g/dl RDW Std Deviation 56.6 H (35.1-43.9) fL Plt Count 128 L (163-337) K/mm3 MPV 11.4 (9.4-12.3) fl Neut % (Auto) 20.7 L (34.0-67.9) % Lymph % (Auto) 58.1 H (21.8-53.1) % [place]more % (Auto) 9.7 (5.3-12.2) % Eos % (Auto) 0.9 (0.8-7.0) Baso % (Auto) 1.2 (0.1-1.2) % Neut # (Auto) 0.70 L (1.78-5.38) K/mm3 Lymph # (Auto) 1.97 (1.32-3.57) K/mm3 [place] # (Auto) 0.33 (0.30-0.82) K/mm3 Eos # (Auto) 0.03 L (0.04-0.54) K/mm3 Baso # (Auto) 0.04 (0.01-0.08) K/mm3 Manual Slide Review Abnormal smear PT 10.8 (9.7-12.0) SECONDS INR 0.97 D-Dimer, Quantitative 1.04 H (0.19-0.50) mg/L Puncture Site ABG pH (7.35-7.45) ABG pCO2 (35.0-45.0) mmHg ABG pO2 (80.0-100.0) mmHg ABG HCO3 (22.0-26.0) meq/L ABG O2 Saturation (96.0-97.0) % ABG Base Excess (-2-2.0) ABG Hemoglobin (12.0-18.0) g/L ABG Oxyhemoglobin ABG Carboxyhemoglobin (0.00-1.50) %THgb ABG Methemoglobin (0.00-1.5) % Ganesh Test A-a Gradient mmHg FiO2 (21.00-100.00) % Tidal Volume cc PEEP cmH20 Sodium 144 (136-145) mEq/L Potassium 3.7 (3.5-5.1) mEq/L Chloride 106 (98-107) mEq/L Carbon Dioxide 19 L (21-32) mEq/L Anion Gap 22.7 H (5-15) BUN 15 (7-18) mg/dL Creatinine 1.5 H (0.7-1.3) mg/dL Est Cr Clr Drug Dosing TNP Estimated GFR (MDRD) 46 (>60) mL/min BUN/Creatinine Ratio 10.0 L (14-18) Glucose 165 H (70-99) mg/dL Calcium 8.5 (8.5-10.1) mg/dL Total Bilirubin 0.4 (0.2-1.0) mg/dL AST 153 H (15-37) U/L ALT 220 H (16-63) U/L Alkaline Phosphatase 114 (46-116) U/L Troponin I 0.059 H* (0.00-0.056) ng/mL C-Reactive Protein <0.2 (<1.0) mg/dL NT-Pro-B Natriuret Pep (0-450) pg/mL Total Protein 7.8 (6.4-8.2) g/dl Albumin 4.3 (3.4-5.0) g/dl Globulin 3.5 gm/dL Albumin/Globulin Ratio 1.2 (1-2) SARS-CoV-2 RNA ([place]) (NEGATIVE) 08/27/21 08/27/21 08/27/21 Range/Units 14:00 14:22 14:41 WBC (4.23-9.07) K/mm3 RBC (4.63-6.08) M/mm3 Hgb (13.7-17.5) gm/dl Hct (40.1-51.0) % MCV (79.0-92.2) fl MCH (25.7-32.2) pg MCHC (32.2-35.5) g/dl RDW Std Deviation (35.1-43.9) fL Plt Count (163-337) K/mm3 MPV (9.4-12.3) fl Neut % (Auto) (34.0-67.9) % Lymph % (Auto) (21.8-53.1) % [place] % (Auto) (5.3-12.2) % Eos % (Auto) (0.8-7.0) Baso % (Auto) (0.1-1.2) % Neut # (Auto) (1.78-5.38) K/mm3 Lymph # (Auto) (1.32-3.57) K/mm3 [place] # (Auto) (0.30-0.82) K/mm3 Eos # (Auto) (0.04-0.54) K/mm3 Baso # (Auto) (0.01-0.08) K/mm3 Manual Slide Review PT (9.7-12.0) SECONDS INR D-Dimer, Quantitative (0.19-0.50) mg/L Puncture Site Lt radial ABG pH 7.11 L* (7.35-7.45) ABG pCO2 58.5 H (35.0-45.0) mmHg ABG pO2 160.0 H* (80.0-100.0) mmHg ABG HCO3 17.9 L (22.0-26.0) meq/L ABG O2 Saturation 98.0 H (96.0-97.0) % ABG Base Excess -11.2 L (-2-2.0) ABG Hemoglobin 9.6 L* (12.0-18.0) g/L ABG Oxyhemoglobin 95.7 ABG Carboxyhemoglobin 0.9 (0.00-1.50) %THgb ABG Methemoglobin 1.4 (0.00-1.5) % Ganesh Test Positive A-a Gradient 337 mmHg FiO2 80.00 (21.00-100.00) % Tidal Volume 500.0 cc PEEP 5.0 cmH20 Sodium (136-145) mEq/L Potassium (3.5-5.1) mEq/L Chloride (98-107) mEq/L Carbon Dioxide (21-32) mEq/L Anion Gap (5-15) BUN (7-18) mg/dL Creatinine (0.7-1.3) mg/dL Est Cr Clr Drug Dosing Estimated GFR (MDRD) (>60) mL/min BUN/Creatinine Ratio (14-18) Glucose (70-99) mg/dL Calcium (8.5-10.1) mg/dL Total Bilirubin (0.2-1.0) mg/dL AST (15-37) U/L ALT (16-63) U/L Alkaline Phosphatase (46-116) U/L Troponin I (0.00-0.056) ng/mL C-Reactive Protein (<1.0) mg/dL NT-Pro-B Natriuret Pep 301 (0-450) pg/mL Total Protein (6.4-8.2) g/dl Albumin (3.4-5.0) g/dl Globulin gm/dL Albumin/Globulin Ratio (1-2) SARS-CoV-2 RNA ([place]) Negative (NEGATIVE) Meds: Medications Generic Name Dose Route Start Last Admin Trade Name Freq PRN Reason Stop Dose Admin Lactated Ringer's 1,000 mls @ 100 mls/hr 08/27/21 14:45 Ringers, Lactated IV ASDIRECTED MLAI Sodium Chloride 10 ml 08/27/21 14:10 Sodium Chloride 0.9% 10 Ml Syringe FLUSH ASDIRECTED PRN Keep Vein Open Discontinued Medications Generic Name Dose Route Start Last Admin Trade Name Freq PRN Reason Stop Dose Admin Fentanyl Confirm 08/27/21 15:38 Fentanyl 100 Mcg/2 Ml Sdv Administered 08/27/21 15:39 Dose 100 mcg .ROUTE .STK-MED ONE Lactated Ringer's Confirm 08/27/21 14:46 Ringers, Lactated Administered 08/27/21 14:47 Dose 1,000 mls @ as directed .ROUTE .STK-MED ONE Midazolam HCl 5 mg 08/27/21 14:00 Midazolam 1 Mg/Ml 5 Ml Sdv .ROUTE 08/27/21 14:01 .STK-MED ONE Midazolam HCl Confirm 08/27/21 15:39 Midazolam 1 Mg/Ml 2 Ml Sdv Administered 08/27/21 15:40 Dose 2 mg .ROUTE .STK-MED ONE Rocuronium [place] 50 mg 08/27/21 14:00 Rocuronium 50 Mg/5 Ml Vial .ROUTE 08/27/21 14:01 .STK-MED ONE Succinylcholine Chloride 200 mg 08/27/21 14:00 Succinylcholine 200 Mg/10 Ml Mdv .ROUTE 08/27/21 14:01 .STK-MED ONE - Re-Assessments/Exams Free Text/Narrative Re-Assessment/Exam: 08/27/21 14:30 As documented CPR started as soon as we got him placed on a cart. Bagged ventilations started with 02, pt subsequently intubated by one of our Nurse Anesth. Was give SC and than 50 mg Rocuronium IV after 2 mg versed IO. Pt given 1 mg epi. IO. Cardiac moniter showed Vfib, Defibrillated at 200 J. CPR resumed. 2 minute rythm, pulse check showed wide complex rythm, mildly irregular suggestive for a fib. with a palpable femoral pulse. Amiodarone 300 mg IV followed by 150 mg IV at the appropriate time started on amiodarone drip. CXR shows no acute changes. 08/27/21 14:46. ABG's drawn a short time ago show ph 7.11, p02 160, Pc02 58.5. Vent settings changed from rate/tidal volume 14/500 go 16/600. BP 131//78. regular wide complex rythm, appears to have p waves on EKG suggestive for SR. 08/27/21 15:35 Dr Stauffer, [facility] does accept patient for transfer. However the bed he will get is not ready, they are getting a patient out, need to clean it so asking the flight crew not to leave [facility] until we get the word. 08/27/21 16:48. Flight crew departed a few minutes ago, rotor flight to [facility]. Departure - Departure Time of Disposition: 15:20 Disposition: DC/Tfer to Acute Hospital 02 Condition: Critical Clinical Impression: Cardiac arrest due to underlying cardiac condition, Ventricular fibrillation, Acute coronary syndrome - Discharge Information Referrals: PCP,None [Primary Care Provider] - Forms: ED Department Discharge - My Orders Last 24 Hours: My Active Orders 08/27/21 14:10 Sodium Chloride 0.9% [Saline Flush] 10 ml FLUSH ASDIRECTED PRN 08/27/21 14:11 Peripheral IV Care [RC] . DIRECTED Peripheral IV Insertion Adult [OM.PC] Stat 08/27/21 14:45 Lactated Ringers [Ringers, Lactated] 1,000 ml IV ASDIRECTED - Assessment/Plan Last 24 Hours: My Active Orders 08/27/21 14:10 Sodium Chloride 0.9% [Saline Flush] 10 ml FLUSH ASDIRECTED PRN 08/27/21 14:11 Peripheral IV Care [RC] . DIRECTED Peripheral IV Insertion Adult [OM.PC] Stat 08/27/21 14:45 Lactated Ringers [Ringers, Lactated] 1,000 ml IV ASDIRECTED
[2021-08-27] MEDS ORDERED: Lactated Ringers 1,000 ML IV SCH (14:45)
[2021-08-27] MEDS ORDERED: Lactated Ringers 1,000 ML ONE (14:46)
--- NOTE | 2021-08-27 14:57 | CR ---
Chest: Portable supine view of the chest was obtained. Comparison: Prior chest x-ray of 12/04/19. Heart size and mediastinum are normal. Lungs are clear with no acute parenchymal change. Endotracheal tube is seen with tip lying at the lower level of the clavicles. Nasogastric tube courses off the inferior edge of the film into the area of the stomach. Bony structures show nothing acute. Impression: 1. Satisfactory position of endotracheal tube and nasogastric tube. 2. Nothing acute is otherwise seen on portable supine chest x-ray. Diagnostic code #2
--- NOTE | 2021-08-27 15:00 | PCM.SN.2 ---
- Free Text/Narrative Note: Anesthesia Note: Start: 1350 Stop: 1430 Code Blue called in ER, upon arrival patient in cardiac arrest with agonal r espirations noted. CPR with chest compressions and assisted ventilations noted. IV access obtained by nursing staff. Rhythm analysis revealed V-fibrillation/with no pulse and defibrillation performed times once. Medication Administration: preintubation: 1. Versed 2mg IV. (see nursing notes for times) 2. 100mg Succinylcholine IV. post intubation: 1. Zemeron 50mg IV. 2. Propofol drip: 25mcg/kg/min. (12ml's/hr) Anesthesia secured airway with size 8 ETT secured at 24 at the lip. Bilateral breath sounds noted along with ETCO2. 18 macedonian OG tube placed to LIS. Portable CXR performed to confirm placement. Thank you! Mounika RODRIGUEZ Time Documentation
[2021-08-27] MEDS ORDERED: fentaNYL 100 MCG/2 ML SDV ONE (15:38)
[2021-08-27] MEDS ORDERED: Midazolam 1 MG/ML 2 ML SDV ONE (15:39)
[2021-08-27] MEDS ORDERED: fentaNYL 100 MCG/2 ML SDV IVPUSH ONE (15:40)
== END 2021-08-27 16:55 ==
LOC: JD.ED 13:43
DX: I46.9 Cardiac arrest, cause unspecified (principal); I24.9 Acute ischemic heart disease, unspecified; I49.01 Ventricular fibrillation; I10 Essential (primary) hypertension; E78.00 Pure hypercholesterolemia, unspecified; I44.7 Left bundle-branch block, unspecified; Z79.82 Long term (current) use of aspirin; Z79.899 Other long term (current) drug therapy; Z20.822 Contact with and (suspected) exposure to COVID-19
CPT/HCPCS: 31500; 36415; 36600; 43752; 51702; 71045; 80053; 82803; 83880; 84484; 85025; 85379; 85610; 86140; 92950; 92960; 93005; 96374; 99285; J0171; J0282; J0330; J2250; J2704; J3010; J7120; U0002; 99100; 99140; J2310

== ENCOUNTER 2021-09-27 12:49 | Emergency (ER) | payer MEDICARE, BC ==
[2021-09-27] MEDS ORDERED: Sodium Chloride 0.9% 10 ML Syringe FLUSH PRN (13:20)
[2021-09-27] MEDS ORDERED: Sodium Chloride 0.9% 500 ML IV ONE (13:46)
--- NOTE | 2021-09-27 13:53 | EDM.PDOC ---
ED HPI GENERAL MEDICAL PROBLEM - General Chief Complaint: Chest Pain Stated Complaint: CHEST PAIN\LOW BLOOD PRESSURE Time Seen by Provider: 09/27/21 13:03 Source of Information: Reports: Patient, Family History Limitations: Reports: No Limitations - History of Present Illness INITIAL COMMENTS - FREE TEXT/NARRATIVE: 76-year-old male presents the emergency department today after his appointment with his lease broker, Dr. Mcdonald, at [facility] this morning. Per the patient and his 's report patient had a regular visit with cardiology this morning and the lease broker noted his BP in the 80s systolic and directed him to come to the emergency department. Of note, the patient did have a recent cardiac arrest approximately 1 month ago and was transferred to [place] where he had an angiogram and 3 stents placed. Was also started on Plavix at that time. The patient states that he generally has chest pain every morning that lasts about a half an hour and then resolves on its own. While in the emergency department, the patient verbalizes no complaints and denies any chest pain, shortness of breath or discomfort. Middle Chest Pain Score (Numeric/FACES): 2 - Related Data Allergies Allergy/AdvReac Type Severity Reaction Status Date / Time albuterol AdvReac Intermediate Burning Verified 09/27/21 14:15 Home Meds: Home Meds Apixaban [Eliquis] 5 mg PO BID 09/27/21 [History] Aspirin [Aspirin EC] 81 mg PO QAM 09/27/21 [History] Cholecalciferol (Vitamin D3) [Vitamin D] 1 tab PO DAILY 09/27/21 [History] Clopidogrel [Plavix] 75 mg PO QAM 09/27/21 [History] Docusate Sodium 100 mg PO BID 09/27/21 [History] Fish Oil/DHA/EPA [Fish Oil 1,200 MG] 1 each PO QAM 09/27/21 [History] Metoprolol Succinate [Toprol Xl] 50 mg PO BID 09/27/21 [History] Non-Formulary Medication [NF Drug] 1 each PO QAM 09/27/21 [History] Non-Formulary Medication [NF Drug] 3 each PO QAM 09/27/21 [History] Pantoprazole [ProTONIX] 40 mg PO ACBREAKFAST 09/27/21 [History] Rosuvastatin [Crestor] 20 mg PO QAM 09/27/21 [History] Spironolactone [Aldactone] 25 mg PO QAM 09/27/21 [History] allopurinoL [Zyloprim] 100 mg PO BID 09/27/21 [History] lisinopriL [Lisinopril] 5 mg PO QAM 09/27/21 [History] Past Medical History Cardiovascular History: Reports: High Cholesterol, Hypertension, Stents, Other (See Below) Other Cardiovascular History: 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 while checking into the ER for chest pain Gastrointestinal History: Reports: Other (See Below) Other Gastrointestinal History: surgery for a bleeding ulcer. is had a colonoscopy by department store door greeter in [place] over a year ago with no positive findings in the colon. It sounds like however there was a enlarged internal hemorrhoid at the time but this department store door greeter states that he doesn't repair these or band them. The patient thus has had continued bleeding per rectum with every bowel movement for the last year his hemoglobin at that time was down to 7 and he required multiple transfusions Hematologic History: Reports: Anemia, Iron Deficiency - Infectious Disease History Infectious Disease History: Reports: None - Past Surgical History Cardiovascular Surgical History: Reports: None, Coronary Artery Stent Other Cardiovascular Surgeries/Procedures: x 3 Other GI Surgeries/Procedures: sister reports pt always has blood in stool and has been checked out and no new orders Social & Family History - Family History Family Medical History: No Pertinent Family History - Tobacco Use Tobacco Use Status *Q: Never Tobacco User - Caffeine Use Caffeine Use: Reports: Coffee, Soda Caffeine Use Comment: Unknown. - Recreational Drug Use Recreational Drug Use: No - Living Situation & Occupation Living situation: Reports: Single (Self-employed) Occupation: Employed ED ROS GENERAL - Review of Systems Review Of Systems: Comprehensive ROS is negative, except as noted in HPI. ED EXAM, GENERAL - Physical Exam Exam: See Below Exam Limited By: No Limitations General Appearance: Alert, WD/WN, No Apparent Distress Ears: Normal External Exam, Hearing Grossly Normal Nose: Normal Inspection Throat/Mouth: Normal Inspection, Normal Lips, Normal Voice, No Airway Compromise Head: Atraumatic Neck: Normal Inspection, Supple Respiratory/Chest: No Respiratory Distress, Lungs Clear, Normal Breath Sounds, No Accessory Muscle Use, Chest Non-Tender Cardiovascular: Normal Peripheral Pulses, Regular Rate, Rhythm, No Edema, No Murmur, Bradycardia Peripheral Pulses: 1+: Radial (L), Radial (R) GI/Abdominal: Normal Bowel Sounds, Soft, Non-Tender, No Distention (Male) Exam: Deferred Rectal (Males) Exam: Deferred Back Exam: Normal Inspection Extremities: Normal Inspection, Normal Range of Motion, Non-Tender, No Pedal Edema, Normal Capillary Refill Neurological: Alert, Oriented, Normal Cognition Psychiatric: Normal Affect, Normal Mood Skin Exam: Warm, Dry, Intact, Normal Color, No Rash Lymphatic: No Adenopathy #1 Interpretation EKG Date: 09/27/21 Time: 13:02 Rhythm: NSR Rate (Beats/Min): 50 [place]: Normal P-Wave: Present QRS: LBBB ST-T: Normal QT: Normal EKG Interpretation Comments: Per Dr. Aguilera interpretation: None is bradycardia at 50 bpm; left bundle branch block; abnormal EKG Course - Vital Signs Text/Narrative:: As stated above, patient presents after having hypotension noted at his cardiology visit this morning. Also complains of daily chest discomfort that lasts approximately half an hour and resolves on its own. Patient is currently hemodynamically stable with a blood pressure of 123/69 with O2 saturations at 97% on room air. He is bradycardic in the 40s and 50s however after reviewing his medication list he takes 100 of metoprolol ER twice daily. His states that his lease broker did decrease this to 50 mg twice daily on today's visit. He has not taken any of his medications today. Physical exam is otherwise unremarkable. Will obtain an EKG, chest x-ray, and lab studies to include a CBC, CMP, magnesium level, troponin and a proBNP. Last Recorded V/S: Last Vital Signs Temp 97.9 F 09/27/21 13:06 Pulse 49 L 09/27/21 13:06 Resp 16 09/27/21 13:06 BP 123/69 09/27/21 13:06 Pulse Ox 97 09/27/21 13:06 - Orders/Labs/Meds Orders: Active Orders 24 hr Category Date Time Status CBC WITH AUTO DIFF [HEME] Stat Lab 09/27/21 14:10 Results UA W/MICROSCOPIC [URIN] Stat Lab 09/27/21 17:09 Results Sodium Chloride 0.9% [Saline Flush] Med 09/27/21 13:20 Active 10 ml FLUSH ASDIRECTED PRN Saline Lock Insert [OM.PC] Stat Oth 09/27/21 13:20 Ordered Medication Orders Sodium Chloride (Sodium Chloride 0.9% 10 Ml Syringe) 10 ml FLUSH ASDIRECTED PRN PRN Reason: Keep Vein Open Last Admin: 09/27/21 13:36 Dose: 10 ml Documented by: BELEM Labs: Laboratory Tests 09/27/21 09/27/21 09/27/21 Range/Units 14:10 14:10 14:10 WBC 4.54 (4.23-9.07) K/mm3 RBC 3.34 L (4.63-6.08) M/mm3 Hgb 10.0 L D (13.7-17.5) gm/dl Hct 31.5 L (40.1-51.0) % MCV 94.3 H D (79.0-92.2) fl MCH 29.9 (25.7-32.2) pg MCHC 31.7 L (32.2-35.5) g/dl RDW Std Deviation 68.1 H (35.1-43.9) fL Plt Count 89 L (163-337) K/mm3 MPV 12.7 H (9.4-12.3) fl Neut % (Auto) 49.5 (34.0-67.9) % Lymph % (Auto) 15.0 L (21.8-53.1) % Graham % (Auto) 32.6 H (5.3-12.2) % Eos % (Auto) 2.0 (0.8-7.0) Baso % (Auto) 0.2 (0.1-1.2) % Neut # (Auto) 2.25 (1.78-5.38) K/mm3 Lymph # (Auto) 0.68 L (1.32-3.57) K/mm3 Graham # (Auto) 1.48 H (0.30-0.82) K/mm3 Eos # (Auto) 0.09 (0.04-0.54) K/mm3 Baso # (Auto) 0.01 (0.01-0.08) K/mm3 Sodium 138 (136-145) mEq/L Potassium 4.9 (3.5-5.1) mEq/L Chloride 105 (98-107) mEq/L Carbon Dioxide 23 (21-32) mEq/L Anion Gap 14.9 (5-15) BUN 32 H (7-18) mg/dL Creatinine 1.9 H (0.7-1.3) mg/dL Est Cr Clr Drug Dosing 34.69 mL/min Estimated GFR (MDRD) 35 (>60) mL/min BUN/Creatinine Ratio 16.8 (14-18) Glucose 111 H (70-99) mg/dL Calcium 8.7 (8.5-10.1) mg/dL Magnesium 2.0 (1.8-2.4) mg/dL Total Bilirubin 0.5 (0.2-1.0) mg/dL AST 16 (15-37) U/L ALT 21 (16-63) U/L Alkaline Phosphatase 129 H (46-116) U/L Troponin I 0.061 H* (0.00-0.056) ng/mL C-Reactive Protein < 0.2 (<1.0) mg/dL NT-Pro-B Natriuret Pep 431 (0-450) pg/mL Total Protein 7.4 (6.4-8.2) g/dl Albumin 3.9 (3.4-5.0) g/dl Globulin 3.5 gm/dL Albumin/Globulin Ratio 1.1 (1-2) Urine Color (Yellow) Urine Appearance (Clear) Urine pH (5.0-8.0) Ur Specific Reading (1.005-1.030) Urine Protein (Negative) Urine Glucose (UA) (Negative) Urine Ketones (Negative) Urine Occult Blood (Negative) Urine Nitrite (Negative) Urine Bilirubin (Negative) Urine Urobilinogen (0.2-1.0) Ur Leukocyte Esterase (Negative) 09/27/21 09/27/21 Range/Units 16:10 17:09 WBC (4.23-9.07) K/mm3 RBC (4.63-6.08) M/mm3 Hgb (13.7-17.5) gm/dl Hct (40.1-51.0) % MCV (79.0-92.2) fl MCH (25.7-32.2) pg MCHC (32.2-35.5) g/dl RDW Std Deviation (35.1-43.9) fL Plt Count (163-337) K/mm3 MPV (9.4-12.3) fl Neut % (Auto) (34.0-67.9) % Lymph % (Auto) (21.8-53.1) % Graham % (Auto) (5.3-12.2) % Eos % (Auto) (0.8-7.0) Baso % (Auto) (0.1-1.2) % Neut # (Auto) (1.78-5.38) K/mm3 Lymph # (Auto) (1.32-3.57) K/mm3 Graham # (Auto) (0.30-0.82) K/mm3 Eos # (Auto) (0.04-0.54) K/mm3 Baso # (Auto) (0.01-0.08) K/mm3 Sodium (136-145) mEq/L Potassium (3.5-5.1) mEq/L Chloride (98-107) mEq/L Carbon Dioxide (21-32) mEq/L Anion Gap (5-15) BUN (7-18) mg/dL Creatinine (0.7-1.3) mg/dL Est Cr Clr Drug Dosing mL/min Estimated GFR (MDRD) (>60) mL/min BUN/Creatinine Ratio (14-18) Glucose (70-99) mg/dL Calcium (8.5-10.1) mg/dL Magnesium (1.8-2.4) mg/dL Total Bilirubin (0.2-1.0) mg/dL AST (15-37) U/L ALT (16-63) U/L Alkaline Phosphatase (46-116) U/L Troponin I 0.059 H* (0.00-0.056) ng/mL C-Reactive Protein (<1.0) mg/dL NT-Pro-B Natriuret Pep (0-450) pg/mL Total Protein (6.4-8.2) g/dl Albumin (3.4-5.0) g/dl Globulin gm/dL Albumin/Globulin Ratio (1-2) Urine Color Yellow (Yellow) Urine Appearance Clear (Clear) Urine pH 6.0 (5.0-8.0) Ur Specific Reading 1.025 (1.005-1.030) Urine Protein 1+ H (Negative) Urine Glucose (UA) Negative (Negative) Urine Ketones Negative (Negative) Urine Occult Blood Negative (Negative) Urine Nitrite Negative (Negative) Urine Bilirubin Negative (Negative) Urine Urobilinogen 0.2 (0.2-1.0) Ur Leukocyte Esterase Negative (Negative) Meds: Medications Generic Name Dose Route Start Last Admin Trade Name Frefrancisco PRN Reason Stop Dose Admin Sodium Chloride 10 ml 09/27/21 13:20 09/27/21 13:36 Sodium Chloride 0.9% 10 Ml Syringe FLUSH 10 ml ASDIRECTED PRN Administration Keep Vein Open Discontinued Medications Generic Name Dose Route Start Last Admin Trade Name Freq PRN Reason Stop Dose Admin Sodium Chloride 500 mls @ 500 mls/hr 09/27/21 13:46 09/27/21 14:26 Normal Saline IV 09/27/21 14:45 500 mls/hr .BOLUS ONE Administration - Re-Assessments/Exams Free Text/Narrative Re-Assessment/Exam: 09/27/21 14:32 Radiologist impression portable view of the chest: Heart size is normal. Mediastinum is within normal limits. Lungs are clear with no acute parenchymal change. Bony structures show nothing acute. Slight vascular calcification is seen within the left carotid artery. Impression: 1. Findings as noted above. 2. Nothing acute is seen on portable chest x-ray. 09/27/21 15:31 Hematology reveals a WBC of 4.54, hemoglobin 10.0, hematocrit 31.5, MCV 94.3 Chemistry reveals a sodium of 138, potassium 4.9, chloride 105, anion gap 14.9, BUN 32, creatinine 1.9, GFR 35, glucose 111, magnesium 2.0, alk phos 129, troponin 0 0.061, C-reactive protein less than 0.2, proBNP 431 Patient blood pressure running upper 90s to low 100s systolically. I have ordered for the patient to receive a 500 mL bolus of normal saline over 1 hour. Troponin is slightly elevated and patient states he has not had any chest pain or pressure while in the emergency department so we will repeat this lab study 2 hours from initial lab draw. Hemoglobin is low at 10.0. Last hemoglobin from 08/27/2021 was 13.8. Patient's primary care provider will likely need to reevaluate this as I do not appreciate any acute bleeding processes. 09/27/21 15:39 Reviewed lab studies with the patient and his sister and they informed me that the patient has had issues with rectal bleeding for approximately the past 2 years. He states he has had several colonoscopies and they cannot locate where he would be bleeding from. This is likely the cause of his anemia. 09/27/21 17:13 Repeat troponin 0 0.059. I spoke with the patient's lease broker, , and reviewed the patient's labs, chest x-ray, vital signs and troponin levels. He does not have any conc erns at this time. Patient will be discharged home with recommendations that he follow-up with his primary care provider regarding his anemia. His lease broker states that he does have an appointment scheduled with him in 2 weeks time. 09/27/21 17:19 Patient states he has an appointment scheduled with Anyi Maddox on 22 October 2021. Departure - Departure Time of Disposition: 17:20 Disposition: Home, Self-Care 01 Condition: Good Clinical Impression: Elevated troponin level Hypotension Qualifiers: Hypotension type: unspecified hypotension type Qualified Code(s): I95.9 - Hypotension, unspecified Instructions: Hypotension, [id number] Referrals: Anyi Maddox, [facility] [employer] MANAGER [Primary Care Provider] - Forms: ED Department Discharge Additional Instructions: You were seen in the emergency department today after being sent over from your clinic visit due to low blood pressure. Chest x-ray was taken and was unremarkable. EKG was completed and did not show any heart attack. Lab studies were completed and it does show that your hemoglobin level is at 10. Although you did relate to me that you do have some rectal bleeding noted. This is something that should be followed up with by your primary care provider. Be sure that this is discussed at your next visit. Your troponin levels which are related to your heart were slightly elevated so these were rechecked and they are decreasing. I did discuss all of your lab studies, x-ray and EKG with your lease broker, , and he states that it was okay to let you go home and that no further studies needed to be completed today. He states you do have a follow-up appointment scheduled with him for 2 weeks from today for reevaluation. Go home and rest and drink plenty of fluids. Should you develop a large amount of rectal bleeding it would be strongly recommended that you return to the emergency department for reevaluation. Sepsis Event Note (ED) - Focused Exam Vital Signs: Vital Signs Temp Pulse Resp BP Pulse Ox 09/27/21 13:06 97.9 F 49 L 16 123/69 97 - My Orders Last 24 Hours: My Active Orders 09/27/21 13:20 Sodium Chloride 0.9% [Saline Flush] 10 ml FLUSH ASDIRECTED PRN Saline Lock Insert [OM.PC] Stat 09/27/21 14:10 CBC WITH AUTO DIFF [HEME] Stat 09/27/21 17:09 UA W/MICROSCOPIC [URIN] Stat - Assessment/Plan Last 24 Hours: My Active Orders 09/27/21 13:20 Sodium Chloride 0.9% [Saline Flush] 10 ml FLUSH ASDIRECTED PRN Saline Lock Insert [OM.PC] Stat 09/27/21 14:10 CBC WITH AUTO DIFF [HEME] Stat 09/27/21 17:09 UA W/MICROSCOPIC [URIN] Stat
--- NOTE | 2021-09-27 14:11 | CR ---
Chest: Portable view of the chest was obtained. Comparison: Prior chest x-ray of 08/27/21. Heart size is normal. Mediastinum is within normal limits. Lungs are clear with no acute parenchymal change. Bony structures show nothing acute. Slight vascular calcification is seen within the left carotid artery. Impression: 1. Findings as noted above. 2. Nothing acute is seen on portable chest x-ray. Diagnostic code #2
== END 2021-09-27 17:50 | disposition home or self-care (01) ==
LOC: SUPCPDRO 12:49 → JD.ED 12:49
DX: I95.9 Hypotension, unspecified (principal); R79.89 Other specified abnormal findings of blood chemistry; E78.00 Pure hypercholesterolemia, unspecified; I10 Essential (primary) hypertension; Z95.5 Presence of coronary angioplasty implant and graft; Z79.01 Long term (current) use of anticoagulants; Z88.8 Allergy status to other drugs, medicaments and biological substances; Z79.82 Long term (current) use of aspirin; Z79.899 Other long term (current) drug therapy; Z79.02 Long term (current) use of antithrombotics/antiplatelets
CPT/HCPCS: 36415; 71045; 80053; 81001; 83735; 83880; 84484; 85025; 86140; 93005; 99285; J7030

== ENCOUNTER 2022-10-12 15:55 | Emergency (ER) | payer MEDICARE, BC | END 2022-10-12 17:21 | disposition home or self-care (01) | LOC: JD.ED 15:55 | DX: R04.0 Epistaxis (principal); E78.00 Pure hypercholesterolemia, unspecified; I10 Essential (primary) hypertension; Z86.73 Personal history of transient ischemic attack (TIA), and cerebral infarction without residual deficits; Z79.01 Long term (current) use of anticoagulants; Z79.82 Long term (current) use of aspirin; Z79.899 Other long term (current) drug therapy | CPT/HCPCS: 30901; 99283 ==

== ENCOUNTER 2024-03-10 17:27 | Emergency (ER) | payer MEDICARE, BC ==
[2024-03-10 17:49] LABS: BASOPHILS PERCENT AUTO 0.3 % (0.0-1.0); EOSINOPHILS PERCENT AUTO 0.3 % (0.0-6.0); HEMATOCRIT 35.3 % (42.0-52.0); HEMOGLOBIN 11.8 gm/dl (14.0-18.0); IMMATURE GRAN ABSOLUTE AUTO 0.13 K/mm3 (0.00-0.05); IMMATURE GRAN PERCENT AUTO 1.1 % (0.0-0.4); LYMPHOCYTES ABSOLUTE AUTO 1.5 K/mm3 (1.0-4.8); LYMPHOCYTES PERCENT AUTO 12.2 % (24.0-44.0); MEAN CORPUSCULAR HEMOGLOBIN 32.2 pg (28.0-32.0); MEAN CORPUSCULAR HGB CONC 33.4 g/dl (32.0-36.0); MEAN CORPUSCULAR VOLUME 96.2 fl (83.0-99.0); MONOCYTES PERCENT AUTO 8.4 % (0.0-8.0); NEUTROPHILS ABSOLUTE AUTO 9.3 K/mm3 (1.8-7.7); NEUTROPHILS PERCENT AUTO 77.7 % (41.0-71.0); PLATELET COUNT,PLT 207 K/mm3 (150-400); RED BLOOD CELL COUNT 3.67 M/mm3 (4.52-5.90); WHITE BLOOD CELL COUNT,WBC 11.92 K/mm3 (3.9-11.3)
[2024-03-10] MEDS: Sodium Chloride 0.9% 1,000 ML IV ONE (17:54)
[2024-03-10] MEDS: Pantoprazole 40 MG Vial IVPUSH ONE (17:54)
[2024-03-10] MEDS: Ondansetron 4 MG/2 ML SDV IVPUSH ONE (17:54)
[2024-03-10] MEDS: Sodium Chloride 0.9% 10 ML Syringe FLUSH PRN (17:55)
[2024-03-10 18:15] LABS: A/G RATIO 1.2 (1-2); ALBUMIN 3.7 g/dl (3.4-5.0); ANION GAP 15.8 (5-15); BILIRUBIN TOTAL 0.7 mg/dL (0.2-1.0); BUN/CREATININE RATIO 27.3 (14-18); CALCIUM 8.8 mg/dL (8.5-10.1); CREATININE 1.5 mg/dL (0.7-1.3); EST CRCL DRUG DOSING (CG) 42.58 mL/min; POTASSIUM,K 3.8 mEq/L (3.5-5.1); PROTEIN TOTAL,TP 6.9 g/dl (6.4-8.2)
[2024-03-10] MEDS ORDERED: Sodium Chloride 0.9% 100 ML IV SCH (18:15)
[2024-03-10] MEDS: Iopamidol 612 MG/ML 100 ML Bottle IVPUSH ONE (18:31)
[2024-03-10] MEDS: LORazepam 2 MG/ML SDV IVPUSH ONE (22:14)
== END 2024-03-10 22:40 ==
LOC: JD.ED 17:27
DX: K92.2 Gastrointestinal hemorrhage, unspecified (principal); I10 Essential (primary) hypertension; E78.00 Pure hypercholesterolemia, unspecified; Z95.5 Presence of coronary angioplasty implant and graft; Z86.73 Personal history of transient ischemic attack (TIA), and cerebral infarction without residual deficits; Z86.16 Personal history of COVID-19; Z79.01 Long term (current) use of anticoagulants; Z88.8 Allergy status to other drugs, medicaments and biological substances; Z79.82 Long term (current) use of aspirin; Z79.02 Long term (current) use of antithrombotics/antiplatelets; Z79.899 Other long term (current) drug therapy
CPT/HCPCS: 36415; 71046; 71260; 74177; 80053; 83880; 84484; 85025; 85379; 93005; 96361; 96374; 96375; 99285; C9113; J2060; J2405; J3490; J7030; P9016; Q9967; 36430; 86850; 86900; 86901; 86902-91; 86922

== ENCOUNTER 2024-10-06 07:03 | Day surgery (SDC) | payer MEDICARE, BC ==
[~2024-10-06 07:03] MED LIST: Sodium Chloride 0.9% 10 ML Syringe FLUSH PRN; Sodium Chloride 0.9% 10 ML Syringe FLUSH SCH
[2024-10-06] MEDS ORDERED: Propofol 200 MG/20 ML SDV ONE (07:06)
[2024-10-06] MEDS ORDERED: Lidocaine 1% 4 ML ONE (07:06)
[2024-10-06] MEDS: Lactated Ringers 1,000 ML IV SCH (07:40)
[2024-10-06] MEDS ORDERED: ePHEDrine 50 MG/ML SDV ONE (08:23)
[2024-10-06] MEDS: Bupivacaine 0.5% 30 ML SDV ONE (08:37)
== END 2024-10-06 09:41 | disposition home or self-care (01) ==
LOC: JD.SDS 07:03
PROVIDERS: ATTEND Surgery
DX: K29.51 Unspecified chronic gastritis with bleeding (principal); K21.01 Gastro-esophageal reflux disease with esophagitis, with bleeding; K22.70 Barrett's esophagus without dysplasia; K31.89 Other diseases of stomach and duodenum; K29.81 Duodenitis with bleeding; K64.8 Other hemorrhoids; K64.4 Residual hemorrhoidal skin tags; K21.9 Gastro-esophageal reflux disease without esophagitis; I10 Essential (primary) hypertension; I48.0 Paroxysmal atrial fibrillation; Z79.01 Long term (current) use of anticoagulants; Z79.899 Other long term (current) drug therapy
CPT/HCPCS: 43239; 46221; J0665; J2704; J7120; 00731; 99100; J3490

== ENCOUNTER 2024-10-18 15:49 | Emergency (ER) | payer MEDICARE, BC ==
[2024-10-18] MEDS ORDERED: Sodium Chloride 0.9% 10 ML Syringe FLUSH PRN (16:21)
[2024-10-18] MEDS: Aspirin 81 MG Tab.Chew PO ONE (17:08)
[2024-10-18 17:13] LABS: BASOPHILS PERCENT AUTO 0.4 % (0.0-1.0); EOSINOPHILS ABSOLUTE AUTO 0.1 K/mm3 (0.0-0.4); EOSINOPHILS PERCENT AUTO 1.3 % (0.0-6.0); HEMATOCRIT 36.1 % (42.0-52.0); HEMOGLOBIN 12.2 gm/dl (14.0-18.0); IMMATURE GRAN ABSOLUTE AUTO 0.06 K/mm3 (0.00-0.05); IMMATURE GRAN PERCENT AUTO 1.1 % (0.0-0.4); LYMPHOCYTES ABSOLUTE AUTO 0.9 K/mm3 (1.0-4.8); LYMPHOCYTES PERCENT AUTO 16.4 % (24.0-44.0); MEAN CORPUSCULAR HGB CONC 33.8 g/dl (32.0-36.0); MEAN CORPUSCULAR VOLUME 97.6 fl (83.0-99.0); MEAN PLATELET VOLUME 11.4 fl (9.4-12.4); MONOCYTES ABSOLUTE AUTO 0.8 K/mm3 (0.0-0.8); MONOCYTES PERCENT AUTO 15.2 % (0.0-8.0); NEUTROPHILS ABSOLUTE AUTO 3.5 K/mm3 (1.8-7.7); NEUTROPHILS PERCENT AUTO 65.6 % (41.0-71.0); PLATELET COUNT,PLT 141 K/mm3 (150-400); WHITE BLOOD CELL COUNT,WBC 5.38 K/mm3 (3.9-11.3)
[2024-10-18 17:55] LABS: A/G RATIO 1.2 (1-2); ALBUMIN 3.9 g/dl (3.4-5.0); ANION GAP 16.1 (5-15); BILIRUBIN TOTAL 0.4 mg/dL (0.2-1.0); BUN/CREATININE RATIO 11.3 (14-18); CALCIUM 8.2 mg/dL (8.5-10.1); CREATININE 1.6 mg/dL (0.7-1.3); EST CRCL DRUG DOSING (CG) 39.29 mL/min; POTASSIUM,K 4.1 mEq/L (3.5-5.1); PROTEIN TOTAL,TP 7.2 g/dl (6.4-8.2)
[2024-10-18] MEDS: Heparin Sodium 5,000 Units/ML Vial IVPUSH ONE (19:21)
[2024-10-18] MEDS: Heparin Sodium/D5W 250 ML IV SCH (19:22)
== END 2024-10-18 22:15 ==
LOC: JD.ED 15:49
DX: I21.4 Non-ST elevation (NSTEMI) myocardial infarction (principal); I10 Essential (primary) hypertension; E78.00 Pure hypercholesterolemia, unspecified; Z95.5 Presence of coronary angioplasty implant and graft; Z86.16 Personal history of COVID-19; Z79.899 Other long term (current) drug therapy; Z79.84 Long term (current) use of oral hypoglycemic drugs; Z88.8 Allergy status to other drugs, medicaments and biological substances
CPT/HCPCS: 36415; 71045; 80053; 84484; 85025; 93005; 96365; 96366; 99285; A9270; J1644; 93010

== ENCOUNTER 2025-11-02 14:38 | Emergency (ER) | payer MEDICARE, BC ==
[2025-11-02] MEDS ORDERED: Sodium Chloride 0.9% 10 ML Syringe FLUSH PRN (14:55)
[2025-11-02 15:04] LABS: BASOPHILS ABSOLUTE AUTO 0.0 K/mm3 (0.0-0.2); BASOPHILS PERCENT AUTO 0.4 % (0.0-1.0); EOSINOPHILS ABSOLUTE AUTO 0.1 K/mm3 (0.0-0.4); EOSINOPHILS PERCENT AUTO 1.5 % (0.0-6.0); IMMATURE GRAN ABSOLUTE AUTO 0.05 K/mm3 (0.00-0.05); IMMATURE GRAN PERCENT AUTO 0.9 % (0.0-0.4); LYMPHOCYTES ABSOLUTE AUTO 1.6 K/mm3 (1.0-4.8); LYMPHOCYTES PERCENT AUTO 29.5 % (24.0-44.0); MEAN PLATELET VOLUME 11.9 fl (9.4-12.4); MONOCYTES ABSOLUTE AUTO 0.8 K/mm3 (0.0-0.8); MONOCYTES PERCENT AUTO 14.0 % (0.0-8.0); NEUTROPHILS ABSOLUTE AUTO 2.9 K/mm3 (1.8-7.7); NEUTROPHILS PERCENT AUTO 53.7 % (41.0-71.0); NRBC ABSOLUTE 0.00 (0.00-0.02); NRBC PERCENT 0.0 % (0.0-0.2); PLATELET COUNT,PLT 111 K/mm3 (150-400); RED BLOOD CELL COUNT 4.39 M/mm3 (4.52-5.90); WHITE BLOOD CELL COUNT,WBC 5.35 K/mm3 (3.9-11.3)
[2025-11-02] MEDS ORDERED: Naloxone 0.4 MG/ML SDV IVPUSH PRN (15:04)
[2025-11-02 15:31] LABS: A/G RATIO 1.2 (1-2); ALANINE AMINOTRANSFERASE,ALT 28.0 U/L (16-63); ASPARTATE AMNIOTRANSFERASE,AST 19.0 U/L (15-37); BILIRUBIN TOTAL 0.8 mg/dL (0.2-1.0); BLOOD UREA NITROGEN,BUN 21.0 mg/dL (7-18); CARBON DIOXIDE,CO2 23.0 mEq/L (21-32); CHLORIDE,CL 104.0 mEq/L (98-107); CREATININE 1.6 mg/dL (0.7-1.3); EST CRCL DRUG DOSING (CG) 38.65 mL/min; ESTIMATED GFR 44.0 mL/min (>60); GLUCOSE RANDOM 135.0 mg/dL (70-99); POTASSIUM,K 3.7 mEq/L (3.5-5.1); PROTEIN TOTAL,TP 7.5 g/dl (6.4-8.2); SODIUM,NA 140.0 mEq/L (136-145)
[2025-11-02 15:39] LABS: TROPONIN I HIGH SENSITIVITY 161.0 pg/mL (<=76)
[2025-11-02 16:00] LABS: INR 1.05
[2025-11-02 16:01] LABS: PTT,PARTIAL THROMBOPLSTIN TIME 26.5 SECONDS (21.7-31.4)
[2025-11-02] MEDS: Heparin Sodium 5,000 Units/ML Vial IVPUSH ONE (18:24)
[2025-11-02] MEDS: Heparin Sodium/D5W 250 ML IV SCH (18:25)
[2025-11-02] MEDS ORDERED: EPINEPHrine 1 MG/ML SDV ONE (19:30)
[2025-11-02] MEDS ORDERED: Magnesium Sulf/Wat 4 GM/50 mL 4 GM in Premix Bag 1 BAG IV ONE (19:30)
[2025-11-02] MEDS ORDERED: Amiodarone 360 MG/200 ML 360 MG/200 ML BAG IV ONE (19:39)
[2025-11-02] MEDS: Amiodarone 150 MG/3 ML SDV ONE ×2 (19:43)
== END 2025-11-02 22:00 | disposition expired ==
LOC: JD.ED 14:38
DX: I21.4 Non-ST elevation (NSTEMI) myocardial infarction (principal); I11.0 Hypertensive heart disease with heart failure; I50.9 Heart failure, unspecified; E11.9 Type 2 diabetes mellitus without complications; Z79.899 Other long term (current) drug therapy; Z88.8 Allergy status to other drugs, medicaments and biological substances; Z86.16 Personal history of COVID-19
CPT/HCPCS: 31500; 36415; 71045; 80053; 83880; 84484; 85025; 85610; 85730; 92950; 92960; 93005; 96365; 96375; 96376; 99285; A9270; J0168; J0169; J1644; J2270; J3475